=== PATIENT | male | born 1945 | race Caucasian/White ===

== ENCOUNTER 2018-09-02 08:19 | Outpatient (CLI) | payer MEDICARE ==
--- NOTE | 2018-09-02 15:54 | PET ---
PET CT FROM [facility] OF SKULL TO MID THIGH: HISTORY: Lymphoma. TECHNIQUE: A PET CT was performed from the top of the skull down to the level of the mid thigh after administrat ion of 10.6 mCi F18-FDG. FINDINGS: Normal, symmetric physiologic activity is seen in the brain. No hot or cold lesions are seen within t he brain. There are mildly enlarged bilateral cervical lymph nodes in zones 2-4. The largest lymph node is seen on the left measuring 2.0 cm in size and has a max SUV value of 20.2. Some hypermetabolic nonenlarge d lymph nodes are seen bilaterally. No hypermetabolic axillary lymph nodes are seen. There are areas of hypermetabolic activity which are subcentimeter in size in the bilateral hilar reg ions. These likely represent lymph nodes, but cannot be definitely discriminated from the pulmonary v asculature in the hilar regions without IV contrast. Max SUV value is 5.6 on the right and 5.7 on the left. No suspicious hypermetabolic activity is seen below the diaphragm. CT images used for attenuation correction shows atherosclerotic calcifications in the aorta. Degenera tive changes are seen in the spine. No suspicious areas of hypermetabolic activity are seen within th e skeleton. IMPRESSION: Patient appears to have enlarged lymph nodes in the neck and bilateral hilar regions of the chest. T his is consistent with the patient's diagnosis of lymphoma. POS: [facility]
== END 2018-09-02 08:20 | disposition home or self-care (01) ==
LOC: PET 08:19
PROVIDERS: ATTEND Internal Medicine Hematology & Oncology
DX: C85.90 Non-Hodgkin lymphoma, unspecified, unspecified site (principal); R59.0 Localized enlarged lymph nodes
CPT/HCPCS: 78815; A9552

== ENCOUNTER 2018-09-09 13:10 | Outpatient (CLI) | payer MEDICARE | END 2018-09-09 13:11 | disposition home or self-care (01) | LOC: ULT 13:10 | PROVIDERS: ATTEND Internal Medicine Hematology & Oncology | DX: Z51.11 Encounter for antineoplastic chemotherapy (principal); C83.31 Diffuse large B-cell lymphoma, lymph nodes of head, face, and neck; I08.3 Combined rheumatic disorders of mitral, aortic and tricuspid valves; Z79.899 Other long term (current) drug therapy | CPT/HCPCS: 93306 ==

== ENCOUNTER 2018-09-12 08:15 | Day surgery (SDC) | payer MEDICARE ==
[2018-09-09 14:05] VITALS: BMI 34.2
[2018-09-12 08:45] LABS: Prothrombin Time 13.6 SEC (12.0-14.7)
[2018-09-12] MEDS ORDERED: Fentanyl 100 MCG/2 ML VIAL ONE (09:45)
[2018-09-12] MEDS ORDERED: Midazolam HCl 2 mg/2 ml Vial ONE (09:46)
[2018-09-12] MEDS ORDERED: Sodium Bicarbonate 2.5 MEQ/5 ML VIAL ONE (09:46)
[2018-09-12 10:59] VITALS: TEMP 98.3
--- NOTE | 2018-09-12 15:26 | CT ---
CT GUIDED BONE MARROW ASPIRATE AND BIOPSY: Date: 09/12/18 CONSCIOUS SEDATION: 1 mg Versed, IV. 50 mcg Fentanyl, IV. Approximately 25 minutes spent with the patient for conscious sedation. HISTORY: Lymphoma. FINDINGS: After explaining the procedure and answering all questions, limited CT of the pelvis was performed wi th the patient prone. Sterile technique, buffered local anesthesia, conscious sedation, CT guidance, and a left posterior approach were used to carefully advance a 12 gauge bone core biopsy needle into the posterior aspect of the left iliac bone. Position was confirmed with CT. Aspirate was obtained an d submitted to pathology for processing. Bone marrow core was obtained and submitted to pathology. Ne edle was removed. Postprocedure imaging showed no evidence of complication. The patient tolerated the procedure well and was returned to the holding area in good condition for monitoring. IMPRESSION: Technically successful CT guided bone marrow aspirate and core biopsy. Pathology is pending. POS: [facility]
== END 2018-09-12 11:45 | disposition home or self-care (01) ==
LOC: CT 08:15
PROVIDERS: ATTEND Internal Medicine Hematology & Oncology
PROC: 07DR3ZX Extraction of Iliac Bone Marrow, Percutaneous Approach, Diagnostic (ICD-10-PCS; principal; 2018-09-12)
DX: C83.09 Small cell B-cell lymphoma, extranodal and solid organ sites (principal); Z79.899 Other long term (current) drug therapy
CPT/HCPCS: 20225; 36415; 77012; 85097; 85610; 85730; 88184; 88237; 88264; 88280; 88305; 88311; 88313; 88341; 88342; J2250; J3010

== ENCOUNTER 2018-09-15 15:00 | Outpatient (CLI) | payer MEDICARE ==
[2018-09-15 16:10] LABS: Anion Gap 8 mmol/L (10-20); BUN (Urea Nitrogen) 24 mg/dL (8.4-25.7); Calc. Creatinine Clearance 0 mL/min (70-130); Calcium 9.8 mg/dL (7.8-10.44); Carbon Dioxide 30 mmol/L (23-31); Chloride 101 mmol/L (98-107); Estimated GFR-MDRD 70; Glucose 123 mg/dL (83-110); Sodium 135 mmol/L (136-145)
[2018-09-15 16:16] LABS: Eosinophils 2 % (0-10); Hemoglobin 13.1 g/dL (14.0-18.0); Lymphocytes 47 % (21-51); MDiff Complete? YES; Mean Corpuscular HGB CONC 30.6 g/dL (32.0-36.0); Mean Corpuscular Hemoglobin 28.9 pg (27.0-31.0); Mean Corpuscular Volume 94.2 fL (78.0-98.0); Mean Platelet Volume 7.1 fL (7.4-10.4); Monocytes 6 % (0-10); Neutrophil 45 % (42-75); PLT Morphology Comment Appears Adequate; Platelet Count 228 thou/uL (130-400); RBC Distribution Width 11.9 % (11.5-14.5); Red Blood Cell (RBC) Count 4.54 mill/uL (4.70-6.10); White Blood Cell (WBC) Count 16.3 thou/uL (4.8-10.8)
--- NOTE | 2018-09-16 16:35 | EKG ---
Test Reason : Blood Pressure : / mmHG Vent. Rate : 072 BPM Atrial Rate : 072 BPM P-R Int : 176 ms QRS Dur : 090 ms QT Int : 372 ms P-R-T Axes : 043 067 061 degrees QTc Int : 407 ms Normal sinus rhythm Normal ECG When compared with ECG of 14-JUN-2013 01:32, No significant change was found Confirmed by DR. Faye FLOWERS ([id number]) on 09/16/2018 4:35:16 PM Referred By: ALETHA Confirmed By:DR. Faye FLOWERS
== END 2018-09-15 15:01 | disposition home or self-care (01) ==
LOC: LABBT 15:00
PROVIDERS: ATTEND Specialist
DX: Z01.812 Encounter for preprocedural laboratory examination (principal); C85.10 Unspecified B-cell lymphoma, unspecified site
CPT/HCPCS: 80048; 85025; 93005; 93010

== ENCOUNTER 2018-09-16 09:01 | Day surgery (SDC) | payer MEDICARE ==
[2018-09-15 15:28] VITALS: BMI 33.9
--- NOTE | 2018-09-15 21:32 | HP ---
HISTORY OF PRESENT ILLNESS: Ludin Crane is a 73-year-old male patient followed by Dr. Lal, Dr. Deangelo jaime, referred for MediPort placement for antineoplastic chemotherapy for stage IIA, large B cell ly mphoma, activated B-cell origin, status post left neck biopsy by Dr. Freeman with pathology review [facility]. Plan is to place a MediPort. He understands risks, benefits, and consents. SOCIAL HISTORY: Tobacco none. Alcohol none. 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 PAST MEDICAL HISTORY: Hypertension, epilepsy. MEDICATIONS: Benazepril/hydrochlorothiazide 20/25 daily, phenytoin 500 mg a day, levothyroxine 88 mc g a day. ALLERGIES: None. PAST SURGICAL HISTORY: Knee replacement 05/2015, I&D buttock abscess that I performed in 2017. REVIEW OF SYSTEMS: Ten-point noncontributory. PRIMARY CARE DOCTOR: Dr. Lal. ONCOLOGIST: Dr. Melendez. PHYSICAL EXAMINATION: VITAL SIGNS: Blood pressure 124/64, 69, 98.1 degrees, 250 pounds, 72 inches. HEAD, EYES, EARS, NOSE, AND THROAT: Unremarkable. LUNGS: Clear to auscultation. CARDIAC: Regular rate and rhythm without murmur or gallop. ABDOMEN: Soft, nontender. EXTREMITIES: Unremarkable. Nonpalpable lymphadenopathy. ASSESSMENT: Lymphoma. PLAN: MediPort placement. Risk of infection, bleeding, reoperation, malfunction of the MediPort dis cussed, he consents. Questions answered.
[2018-09-16] MEDS ORDERED: Lidocaine 2% Jelly 5 ML TUBE ONE (09:15)
[2018-09-16] MEDS ORDERED: Fentanyl 100 MCG/2 ML VIAL ONE (09:15)
[2018-09-16] MEDS ORDERED: Bupivacaine HCl 0.5%/Epinephrine 1:200,000/PF 30 ml Vial ONE (09:57)
[2018-09-16] MEDS ORDERED: Lidocaine 2% PF 5 ML VIAL ONE (09:57)
[2018-09-16] MEDS ORDERED: CEFAZOLIN 2 GM/50 ML BAG ONE (10:12)
--- NOTE | 2018-09-16 11:51 | OP ---
DATE OF PROCEDURE: 09/16/2018 PREOPERATIVE DIAGNOSIS: Large B cell lymphoma, in need of antineoplastic chemotherapy access. POSTOPERATIVE DIAGNOSIS: Large B cell lymphoma, in need of antineoplastic chemotherapy access. PROCEDURE: Right subclavian vein low profile MediPort PowerPort. SURGEON: Dr. Raj Chin ANESTHESIA: Intravenous sedation, local 0.5% Marcaine with epinephrine, 30 mL, mixed with 2% Xylocai ne, 10 mL. Fluoroscopy used. PROCEDURE: The patient was taken to the operating room where under intravenous sedation, neck and ch est prepared with ChloraPrep, draped in routine fashion. Local anesthetic infiltrated into skin and subcutaneous tissue about the operative site. Infraclavicular right access to the subclavian vein wi th a trocar catheter gained and J wire threaded, trocar catheter removed. Skin incised and enlarged sharply, carried down skin and subcutaneous tissue, creating a pocket using cautery for hemostasis. Dilator and pull-away sheath placed over the J-wire in superior vena cava. Dilator and J-wire remove d. Catheter placed with pull-away sheath. Pull-away sheath removed. Fluoroscopically, the tip had been placed in good position in superior vena cava and catheter tailored to length, connected to the MediPort placed in subcutaneous pocket securing it with 2 interrupted sutures of 3-0 Prolene. Subcut aneous tissues approximated with 3-0 Monocryl, skin with subdermal 4-0 Monocryl and DermaGlue applied . Each port aspirated with a Mission heater needle of blood and flushed with heparinized saline soluti on. Final fluoroscopic images revealed good line placement.
--- NOTE | 2018-09-16 12:44 | RAD ---
CHEST ONE VIEW: History: Mediport insertion. FINDINGS: The cardiac silhouette is magnified by projection. Shallow inspiration accentuates pulmonary markings . Mediastinum is midline. Tip of a right subclavian port-a-cath projects over the cavoatrial junction . No evidence of pneumothorax. IMPRESSION: Right subclavian Mediport is in good radiographic position. POS: [facility]
== END 2018-09-16 11:50 | disposition home or self-care (01) ==
LOC: SDC 09:01
PROVIDERS: ATTEND Specialist
PROC: 0JH63WZ Insertion of Totally Implantable Vascular Access Device into Chest Subcutaneous Tissue and Fascia, Percutaneous Approach (ICD-10-PCS; principal; 2018-09-16)
DX: C85.10 Unspecified B-cell lymphoma, unspecified site (principal); I10 Essential (primary) hypertension; G40.909 Epilepsy, unspecified, not intractable, without status epilepticus; Z79.899 Other long term (current) drug therapy
CPT/HCPCS: 36561; 71045; C1788; J0670; J1642; J2001; J3010

== ENCOUNTER 2018-11-24 09:31 | Outpatient (CLI) | payer MEDICARE ==
--- NOTE | 2018-11-24 13:30 | PET ---
PET SCAN WITH CT ATTENUATION CORRECTION: HISTORY: Lymphoma. Right neck mass. Patient has undergone chemotherapy. COMPARISON: 09/02/18. TECHNIQUE: PET scanning with CT attenuation correction is performed from the base of the brain to the proximal t highs following the intravenous administration of 11.2 mCi F18-FDG. FINDINGS: HEAD/NECK: The previously noted FDG avidity in the head and neck is no longer evident. CHEST: The previously noted FDG avidity in the left and right hilum is no longer evident. There is no new ar ea of abnormal FDG localization in the chest. CT used for attenuation correction demonstrates depende nt atelectatic changes. ABDOMEN/PELVIS: No abnormal FDG localization. OSSEOUS STRUCTURES: No abnormal FDG localization. IMPRESSION: Significant response to therapy. The previously noted abnormal FDG localization in the neck and pulmo nary tanvi is no longer evident. There are no new areas of abnormal FDG localization. POS: [facility]
== END 2018-11-24 09:32 | disposition home or self-care (01) ==
LOC: PET 09:31
PROVIDERS: ATTEND Internal Medicine Hematology & Oncology
DX: C85.90 Non-Hodgkin lymphoma, unspecified, unspecified site (principal)
CPT/HCPCS: 78815; A9552

== ENCOUNTER 2019-02-07 11:26 | Outpatient (CLI) | payer MEDICARE ==
--- NOTE | 2019-02-07 14:10 | PET ---
FPET WITH CT SKULL TO MID THIGH: COMPARISON: 11/24/2018. CLINICAL INDICATION: Lymphoma. Radiopharmaceutical: 10.6 mCi fluorine 18 FDG IV. FINDINGS: There has been interval development of abnormal hypermetabolic activity at the right oropharyngeal wa ll, with SUV of 5.3. No discernible soft tissue mass is seen within this region, where there is oppos ed soft tissues of the oropharynx as well as adjacent dystrophic-appearing calcifications. No hypermetabolic mass or adenopathy of the chest, abdomen, or pelvis is identified. There are no hyp ermetabolic osseous lesions visualized. IMPRESSION: Interval development of a small region of hypermetabolic activity of the right oropharynx as discusse d above. Given patient's clinical history, this could relate to metabolically active lymphoma. Contin ued imaging followup is recommended. Transcribed Date/Time: 02/07/2019 2:39 PM
== END 2019-02-07 11:27 | disposition home or self-care (01) ==
LOC: PET 11:26
PROVIDERS: ATTEND Internal Medicine Hematology & Oncology
DX: C83.30 Diffuse large B-cell lymphoma, unspecified site (principal)
CPT/HCPCS: 78815; A9552

== ENCOUNTER 2019-08-14 09:52 | Outpatient (CLI) | payer MEDICARE ==
--- NOTE | 2019-08-14 12:44 | CT ---
CT CHEST AND ABDOMEN WITH CONTRAST: Oral contrast was given. Multiplanar reconstructions. INDICATION: Large B-cell lymphoma. Correlation made to PET scan of 02/07/19. No adenopathy was described in the chest or abdomen on that study. FINDINGS: CT CHEST: The lung valdovinos are clear. There is no evidence of infiltrate or nodule. Mediastinum is unremarkable. No adenopathy. No axillary adenopathy. No osseous abnormality. Degenerat shari changes in the spine. CT ABDOMEN: Liver, spleen, and pancreas are unremarkable. Stomach and duodenum unremarkable. Adrenal glands and k idneys unremarkable. Visualized bowel loops unremarkable. Aorta shows atherosclerotic calcification w ithout aneurysmal dilatation. No adenopathy. Degenerative spine changes. IMPRESSION: No evidence of adenopathy identified in the chest or abdomen. No acute process. POS: [facility]
[2019-08-14] MEDS ORDERED: ISOVUE-370 76%-LOCM 1 ML ONE (13:43)
--- NOTE | 2019-08-14 13:50 | CT ---
CT NECK WITH CONTRAST: INDICATION: Diffuse large B-cell lymphoma lymph nodes of head, face, and neck. COMPARISON: Comparison is made to PET scan of 02/07/2019. That exam described abnormal activity in the right oroph arynx wall. FINDINGS: Parotid glands, submandibular glands, and thyroid appear unremarkable. Nasopharynx unremarkable. Oropharynx shows mild prominence of the palatine tonsils. There are 2 ton sillolith calcifications in the right palatine tonsil with prominence of the right palatine tonsil po ssibly relating to the activity seen on recent PET scan. Hypopharynx and larynx appear unremarkable. Parapharyngeal space and retropharyngeal space unremarkable. Car Storer space unremarkable. Carotid space shows prominent atherosclerotic changes in both carotid bulbs. There is evidence of st enosis in both proximal internal carotid arteries, possibly significant on the left. Consider caroti d Doppler assessment. If velocities are increased, CTA neck would be of benefit. Review of lymph node levels shows nonspecific level I submandibular nodes which re subcentimeter. Level II lymph nodes are nonspecific and subcentimeter. No evidence of level III, level IV, or level V adenopathy. Tiny nonspecific subcentimeter nodes are seen at these levels. Degenerative changes in the cervical spine are prominent at C4-5, C5-6, and C6-7. Prominent spondyli tic changes impinge on the cord and there is foraminal stenosis at these levels. There are mucous retention cysts in both maxillary sinuses. There is opacification of the left masto id air cells suggesting mucosal edema. IMPRESSION: 1. Mild prominence of the palatine tonsils, especially on the right. There are calcified tonsilloli ths in both palatine tonsils with at least 2 seen on the right. Prominence of the right palatine ton duong may explain the hypermetabolic activity seen on recent PET scan. 2. No evidence of cervical chain adenopathy. 3. Moderate severe degenerative change of the cervical spine producing cord compression and central canal stenosis with foraminal stenosis at several levels. 4. Prominent atherosclerotic calcification in the carotid bulb suggests carotid stenosis. Correlate with ultrasound velocity studies and consider CTA if velocity recordings are increased. 5. Mucosal retention cyst in the maxillary sinuses. POS: [facility]
== END 2019-08-14 09:53 | disposition home or self-care (01) ==
LOC: BICCT 09:52
PROVIDERS: ATTEND Internal Medicine Hematology & Oncology
DX: C83.31 Diffuse large B-cell lymphoma, lymph nodes of head, face, and neck (principal); M47.812 Spondylosis without myelopathy or radiculopathy, cervical region; M48.02 Spinal stenosis, cervical region; I65.23 Occlusion and stenosis of bilateral carotid arteries; J34.89 Other specified disorders of nose and nasal sinuses; J35.8 Other chronic diseases of tonsils and adenoids
CPT/HCPCS: 70491; 71260; 74160; 80053; 82248; 82565; 83615; 84100; 84550; Q9966

== ENCOUNTER 2020-03-12 10:16 | Outpatient (CLI) | payer MEDICARE ==
[2020-03-12] MEDS ORDERED: Iopamidol 370 76% 100 ML VIAL ONE (10:18)
--- NOTE | 2020-03-12 11:20 | CT ---
POSTCONTRAST SOFT TISSUE NECK CT: HISTORY: B-cell lymphoma. COMPARISON: 08/14/2019. CORRELATION: Pet imaging 02/07/2019. FINDINGS: Visualized brain parenchyma has appropriate attenuation. Bilateral ocular lenses are appropriately located. Both globes are intact. Retrobulbar fat is preserv ed. Symmetric attenuation of the optic nerves and ocular rectus muscles. Mild mucosal thickening involving the right maxillary sinus. Partial opacification of the right sphen oid sinus, incompletely evaluated. Fullness of the nasopharynx likely representing lymphoid tissue hypertrophy. There is fullness of the palatine tonsils also representing lymphoid tissue hypertrophy. No obvious masses in the oral cavity. Midline fatty raphae of the tongue preserved. Epiglottis has a normal caliber. Preepiglottic fat is preserved. Symmetric attenuation of the paraspinal muscles. Symmetric attenuation of the salivary glands. Approp riate attenuation of the thyroid gland. Cervical spine vertebral body height is maintained. There is no fracture. Multilevel degenerative ruchi nges throughout the cervical spine with varying degrees of central canal stenosis and neural foraminal narrowing, on the basis of degenerative change. Stable atherosclerosis involving both cervical carotid arteries. Lymph nodes: Extensive multifocal lymphadenopathy which has significantly progressed since the previo us examination. Pecan Sheller lymphadenopathy in the right neck with a level V lymph node measuring 1.5 x 1.2 cm, level I lymph node measuring 1.5 x 1.4 cm, left level II lymph node measuring 1.5 x 1.3 cm, bilateral periparotid lymph nodes measuring 2.4 x 1.4 on the right and 2.0 x 1.4 cm on the left. Additional enlarged lymph nodes are noted, scattered throughout the neck. There are larg e bilateral periclavicular and axillary lymph nodes. Refer to separate chest CT report for further detail. Upper mediastinum demonstrates enlarged right paratracheal lymph nodes. There is fullness in the righ t suprahilar region, incompletely evaluated. IMPRESSION: Interval extensive lymphadenopathy suggesting recurrence of lymphoma. Transcribed Date/Time: 03/12/2020 11:48 AM
--- NOTE | 2020-03-12 12:33 | CT ---
CT CHEST WITH IV CONTRAST CT ABDOMEN WITH IV AND ORAL CONTRAST: Date: 03/12/2020 HISTORY: Diffuse B cell lymphoma. COMPARISON: 08/14/2019. FINDINGS: There has been interval development of lymphadenopathy in the mediastinum, hilar regions, axilla, and abdomen (retroperitoneum, periportal regions, and gastrohepatic ligament). There are vascular calcifications without evidence of aneurysmal dilatation of the abdominal aorta. T here are degenerative changes in the thoracolumbar spine. No pneumothoraces, focal areas of consolidation, lung nodules, or masses are seen. The liver demonstr ates mild fatty infiltration. The spleen appears larger measuring 13.2 cm in oblique AP dimension com pared to 10.7 cm on the previous study. No pneumoperitoneum or ascites seen. The small bowel loops are not abnormally dilated. IMPRESSION: 1. Interval development of lymphadenopathy on both sides of the diaphragm. 2. Mild splenomegaly. 3. Mild hepatic steatosis. POS: [facility]
== END 2020-03-12 10:17 | disposition home or self-care (01) ==
LOC: BICCT 10:16
PROVIDERS: ATTEND Internal Medicine Hematology & Oncology
DX: C83.31 Diffuse large B-cell lymphoma, lymph nodes of head, face, and neck (principal); R59.0 Localized enlarged lymph nodes
CPT/HCPCS: 70491; 71260; 74160; Q9967

== ENCOUNTER 2020-04-11 06:24 | Outpatient (CLI) | payer MEDICARE, OTHER ==
[2020-04-11 18:20] LABS: SARS-CoV-2 MS2 Positive; SARS-CoV-2 N Gene Negative; SARS-CoV-2 S Gene Negative; SARS-CoV-2 orf1ab Negative
== END 2020-04-11 06:25 | disposition home or self-care (01) ==
LOC: LABBT 06:24
PROVIDERS: ATTEND Specialist
DX: Z01.812 Encounter for preprocedural laboratory examination (principal); Z11.59 Encounter for screening for other viral diseases; C85.10 Unspecified B-cell lymphoma, unspecified site
CPT/HCPCS: 87635; U0003

== ENCOUNTER 2020-04-12 08:38 | Day surgery (SDC) | payer MEDICARE ==
[2020-04-11 15:25] VITALS: BMI 31.8
[2020-04-12 08:55] LABS: #Lymphocytes 1.5 thou/uL (1.20-3.40); #Monocytes 0.8 thou/uL (0.11-0.59); #Neutrophils 3.1 thou/uL (1.40-6.50); %Basophils 0.8 % (0.0-1.0); %Eosinophils 0.3 % (0.0-10.0); %Lymphocytes 27.8 % (21.0-51.0); %Monocytes 14.1 % (0.0-10.0); %Neutrophils 57.2 % (42.0-75.0); Hemoglobin 9.7 g/dL (14.0-18.0); Mean Corpuscular HGB CONC 31.8 g/dL (32.0-36.0); Mean Corpuscular Volume 94.4 fL (78.0-98.0); Mean Platelet Volume 5.5 fL (7.4-10.4); Platelet Count 293 thou/uL (130-400); RBC Distribution Width 14.2 % (11.5-14.5); Red Blood Cell (RBC) Count 3.23 mill/uL (4.70-6.10); White Blood Cell (WBC) Count 5.4 thou/uL (4.8-10.8)
[2020-04-12 09:06] LABS: INR-International Normal Ratio 1.2; PTT 35.5 sec (22.9-36.1); Prothrombin Time 15.4 sec (12.0-14.7)
[2020-04-12] MEDS ORDERED: Sodium Bicarbonate 2.5 MEQ/5 ML VIAL ONE (09:43)
[2020-04-12 10:42] VITALS: BP 131/71; TEMP 98.8
--- NOTE | 2020-04-12 11:12 | CT ---
CT GUIDED RIGHT ILIAC BONE MARROW ASPIRATION AND BIOPSY: CLINICAL HISTORY: Recurrence of large B-cell lymphoma. PROCEDURE: The procedure including the risks and complications were explained to the patient, and informed conse nt was obtained. The patient was placed on the CT scan table in the prone position. Noncontrasted CT images were obtained through the pelvis. An area was marked overlying the RIGHT héctor c bone, and the area was meticulously prepped and draped in usual sterile fashion. The skin and subcutaneous tissues were infiltrated with buffered 1% lidocaine for local anesthesia. After a small skin incision was made, an 11-gauge needle was advanced and positioning was confirmed w ith axial CT images. Approximately 10 milliliters of bone marrow aspirate was obtained. The needle was then further advanced, and a bone marrow biopsy was performed. The needle was removed, and hemost asis was achieved with direct pressure. The patient tolerated the procedure well and without immediate complication. The patient was transported to radiology nurses holding area for further damion toring prior to discharge. IMPRESSION: Technically successful percutaneous bone marrow aspiration and biopsy. Pathology results are pending.
[2020-04-12] MEDS ORDERED: Prevnar 13-Val Conj/PF 0.5 ML SYRINGE IM ONE (15:45)
== END 2020-04-12 11:05 | disposition home or self-care (01) ==
LOC: CT 08:38
PROVIDERS: ATTEND Internal Medicine Hematology & Oncology
PROC: 07DR3ZX Extraction of Iliac Bone Marrow, Percutaneous Approach, Diagnostic (ICD-10-PCS; principal; 2020-04-12)
DX: C83.39 Diffuse large B-cell lymphoma, extranodal and solid organ sites (principal); Z79.899 Other long term (current) drug therapy
CPT/HCPCS: 20225; 36415; 77012; 85025; 85097; 85610; 85730; 88184; 88237; 88264; 88280; 88305; 88311; 88313; 88341; 88342

== ENCOUNTER 2020-04-12 09:17 | Day surgery (SDC) | payer MEDICARE ==
[2020-04-11 13:33] VITALS: BMI 31.8
[2020-04-12] MEDS ORDERED: Lidocaine 2% w/Epinephrine 1:200K 20 ML VIAL ONE (09:31)
[2020-04-12] MEDS ORDERED: Bupivacaine PF 0.5% 30 ML VIAL ONE (09:31)
[2020-04-12] MEDS ORDERED: Ketorolac Tromethamine 30 MG/ML VIAL ONE (11:55)
[2020-04-12] MEDS ORDERED: Acetaminophen 500 MG TAB ONE ×3 (11:55→11:56)
[2020-04-12] MEDS ORDERED: Lidocaine 1% PF 5 ML VIAL ONE (12:06)
[2020-04-12] MEDS ORDERED: PROPOFOL 200 MG/20 ML VIAL ONE (12:06)
[2020-04-12] MEDS ORDERED: Fentanyl 100 MCG/2 ML VIAL ONE (15:25)
[2020-04-12] MEDS ORDERED: Lidocaine 1% w/Epinephrine 1:100K 20 ML VIAL ONE (15:29)
[2020-04-12] MEDS ORDERED: PROPOFOL 0 ML ONE (16:05)
--- NOTE | 2020-04-12 17:26 | RAD ---
PORTABLE UPRIGHT FRONTAL CHEST RADIOGRAPH: 04/12/20 COMPARISON: None. HISTORY: Evaluate chest following Mediport placement. FINDINGS: There is a right sided Port-A-Cath in place, distal tip overlying the region of the SVC. No pneumotho rax, pleural fluid, focal consolidation, or alveolar edema. IMPRESSION: Right sided Port-A-Cath with no pneumothorax seen. POS: [facility]
--- NOTE | 2020-04-12 23:05 | OP ---
DATE OF PROCEDURE: 04/12/2020 PREOPERATIVE DIAGNOSIS: B-cell lymphoma, needs MediPort for antineoplastic chemotherapy access. POSTOPERATIVE DIAGNOSIS: B-cell lymphoma, needs MediPort for antineoplastic chemotherapy access. PROCEDURE PERFORMED: Right subclavian vein MediPort, fluoroscopy used. ANESTHESIA: Intravenous sedation, local 0.5% Marcaine 30 mL mixed with 1% Xylocaine with epinephrine 20 mL. DESCRIPTION OF PROCEDURE: Patient was taken to the operating room, where under intravenous sedation, the neck and chest were prepared with ChloraPrep and draped in routine fashion. Through his old scar, right upper chest, trocar catheter reduced into the subclavian vein, obtained good straight venous blood. J-wire threaded, trocar catheter removed. Fluoroscopic images revealed the J-wire and internal jugular vein. It was manipulated into what was thought the superior vena cava. In the process, the MediPort was placed, but did not have any blood return. Thus, it was removed. The right subclavian vein was recannulated with a trocar catheter. A J-wire threaded and it passed easily into the superior vena cava. The patient had a few PVCs. Dilator and pull away sheath were placed under fluoroscopic visualization in the superior vena cava and dilator and J-wire removed. Catheter placed with pull away sheath. Pull away sheath removed. Catheter tip placed in optimal position in the superior vena cava, catheter tailored to length, connected to the MediPort and which was placed in subcutaneous pocket which has been dissected free. Good hemostasis noted. Metaphor secured with 2 interrupted sutures of 3-0 Prolene, subcutaneous tissue was approximated with 3-0 Monocryl, skin was subdermal 4-0 Monocryl and [place] glue applied. Patient tolerated the procedure well. Final fluoroscopic images revealed good line placement. MediPort accessed with a Villanueva needle, obtained good return of blood and it was flushed with heparinized saline solution. Job ID: [id number]
== END 2020-04-12 17:53 | disposition home or self-care (01) ==
LOC: SDC 09:17
PROVIDERS: ATTEND Specialist
PROC: 02HV33Z Insertion of Infusion Device into Superior Vena Cava, Percutaneous Approach (ICD-10-PCS; principal; 2020-04-12)
DX: C85.10 Unspecified B-cell lymphoma, unspecified site (principal); I10 Essential (primary) hypertension; G40.909 Epilepsy, unspecified, not intractable, without status epilepticus; Z79.899 Other long term (current) drug therapy
CPT/HCPCS: 36561; 71045; C1788; J0690; J1642; J1885; J2001; J2704; J3010; S0020

== ENCOUNTER 2020-05-02 13:15 | Day surgery (SDC) | payer MEDICARE ==
[2020-05-02] MEDS ORDERED: Acetaminophen 500 MG TAB PO SCH (13:45)
[2020-05-02] MEDS ORDERED: diphenhydrAMINE 25 MG CAP PO SCH (13:45)
[2020-05-02 13:56] VITALS: BMI 30.2
[2020-05-02 23:01] LABS: Band 34 % (5-11); Hemoglobin 9.3 g/dL (14.0-18.0); Lymphocytes 19 % (21-51); MDiff Complete? YES; Mean Corpuscular HGB CONC 33.3 g/dL (32.0-36.0); Mean Corpuscular Hemoglobin 30.2 pg (27.0-31.0); Mean Corpuscular Volume 90.7 fL (78.0-98.0); Mean Platelet Volume 7.9 fL (7.4-10.4); Monocytes 5 % (0-10); Neutrophil 42 % (42-75); Nucleated RBC 1 % (0); Platelet Count 52 thou/uL (130-400); Platelet Morphology Comment Appears Decreased; RBC Distribution Width 14.4 % (11.5-14.5); Red Blood Cell (RBC) Count 3.07 mill/uL (4.70-6.10); White Blood Cell (WBC) Count 2.9 thou/uL (4.8-10.8)
[2020-05-02 23:06] VITALS: BP 121/72; TEMP 98.8
[2020-05-03] MEDS ORDERED: Prevnar 13-Val Conj/PF 0.5 ML SYRINGE IM ONE (14:30)
== END 2020-05-02 22:33 | disposition home or self-care (01) ==
LOC: ONC/OP 13:15 → T4-A 13:21 → ONC/OP 22:33
PROVIDERS: ATTEND Internal Medicine Hematology & Oncology
PROC: 30233N1 Transfusion of Nonautologous Red Blood Cells into Peripheral Vein, Percutaneous Approach (ICD-10-PCS; principal; 2020-05-02)
DX: D64.9 Anemia, unspecified (principal); D69.6 Thrombocytopenia, unspecified; Z79.899 Other long term (current) drug therapy; C83.31 Diffuse large B-cell lymphoma, lymph nodes of head, face, and neck
CPT/HCPCS: 36415; 36430; 80053; 82248; 83615; 84100; 84550; 85025; 86850; 86900; 86901; P9016; Q0163

== ENCOUNTER 2020-05-17 10:36 | Day surgery (SDC) | payer MEDICARE ==
[2020-05-17 12:04] VITALS: BMI 29.8
[2020-05-17] MEDS ORDERED: Acetaminophen 500 MG TAB PO SCH (12:15)
[2020-05-17] MEDS ORDERED: diphenhydrAMINE 25 MG CAP PO SCH (12:15)
[2020-05-17] MEDS ORDERED: Prevnar 13-Val Conj/PF 0.5 ML SYRINGE IM ONE (13:00)
[2020-05-17 14:38] VITALS: TEMP 97.9
[2020-05-17 17:12] VITALS: BP 111/61
[2020-05-17 17:59] LABS: Hemoglobin 8.6 g/dL (14.0-18.0); Mean Corpuscular HGB CONC 32.8 g/dL (32.0-36.0); Mean Corpuscular Hemoglobin 30.3 pg (27.0-31.0); Mean Corpuscular Volume 92.5 fL (78.0-98.0); Platelet Count 98 thou/uL (130-400); RBC Distribution Width 15.2 % (11.5-14.5); Red Blood Cell (RBC) Count 2.82 mill/uL (4.70-6.10); White Blood Cell (WBC) Count 17.3 thou/uL (4.8-10.8)
[2020-05-17 18:24] LABS: Anisocytosis SLIGHT = 6-15 cells (100X) (0-5/hpf); Band 17 % (5-11); Lymphocytes 5 % (21-51); MDiff Complete? YES; Metamyelocyte 1 % (0-0); Neutrophil 77 % (42-75); Platelet Morphology Comment Appears Decreased; Polychromasia SLIGHT = 2-3 cells (100X) (0-2/hpf)
== END 2020-05-17 17:38 | disposition home or self-care (01) ==
LOC: ONC/OP 10:36 → SURG A 10:37 → ONC/OP 17:38
PROVIDERS: ATTEND Internal Medicine Hematology & Oncology
PROC: 30233N1 Transfusion of Nonautologous Red Blood Cells into Peripheral Vein, Percutaneous Approach (ICD-10-PCS; principal; 2020-05-17)
DX: D64.9 Anemia, unspecified (principal); D69.6 Thrombocytopenia, unspecified
CPT/HCPCS: 36415; 36430; 85025; 86850; 86900; 86901; P9016; Q0163

== ENCOUNTER 2020-05-29 08:29 | Day surgery (SDC) | payer MEDICARE ==
[2020-05-29] MEDS ORDERED: diphenhydrAMINE 25 MG CAP PO SCH (09:00)
[2020-05-29] MEDS ORDERED: Acetaminophen 500 MG TAB PO SCH (09:00)
[2020-05-29] MEDS ORDERED: Sodium Chloride 0.9% 20 ML ONE (09:26)
[2020-05-29 15:26] VITALS: BP 132/65; TEMP 97.9
[2020-05-29 16:28] LABS: #Lymphocytes 0.5 thou/uL (1.20-3.40); #Monocytes 0.7 thou/uL (0.11-0.59); #Neutrophils 4.5 thou/uL (1.40-6.50); %Eosinophils 0.1 % (0.0-10.0); %Lymphocytes 9.2 % (21.0-51.0); %Monocytes 11.8 % (0.0-10.0); %Neutrophils 78.8 % (42.0-75.0); Anisocytosis SLIGHT = 6-15 cells (100X) (0-5/hpf); Band 31 % (5-11); Lymphocytes 3 % (21-51); MDiff Complete? YES; Mean Corpuscular HGB CONC 33.7 g/dL (32.0-36.0); Mean Corpuscular Hemoglobin 31.6 pg (27.0-31.0); Mean Corpuscular Volume 93.7 fL (78.0-98.0); Mean Platelet Volume 6.3 fL (7.4-10.4); Monocytes 5 % (0-10); Neutrophil 57 % (42-75); Platelet Count 284 thou/uL (130-400); Platelet Morphology Comment Appears Adequate; Reactive Lymphocytes 4 % (0-10); Red Blood Cell (RBC) Count 2.86 mill/uL (4.70-6.10); White Blood Cell (WBC) Count 5.8 thou/uL (4.8-10.8)
== END 2020-05-29 15:30 | disposition home or self-care (01) ==
LOC: ONC/OP 08:29
PROVIDERS: ATTEND Internal Medicine Hematology & Oncology
PROC: 30233N1 Transfusion of Nonautologous Red Blood Cells into Peripheral Vein, Percutaneous Approach (ICD-10-PCS; principal; 2020-05-29)
DX: D64.9 Anemia, unspecified (principal); D69.6 Thrombocytopenia, unspecified
CPT/HCPCS: 36430; 85025; 86850; 86900; 86901; J1642; P9016; Q0163

== ENCOUNTER 2020-08-20 12:26 | Outpatient (CLI) | payer MEDICARE ==
--- NOTE | 2020-08-20 19:09 | PET ---
PET CT: 08/20/20 HISTORY: 75-year-old male with diffuse large B-cell lymphoma. Completed chemotherapy on 06/18/20. Exam is reque sted to evaluate for subsequent treatment planning. TECHNIQUE: PET scan with CT attenuation correction was performed from the vertex through the proximal thighs fol lowing intravenous administration of 10.8 millicuries of 15-fluorodeoxyglucose in the right hand. COMPARISON: PET CT dated 06/18/20. FINDINGS: The lymph node in the left posterior occipital scalp demonstrates no abnormal FDG localization and kumar s an SUV of 2.2 (previous 3.5). Hypermetabolic lymph nodes demonstrate maximum SUVs with comparison as follows: Right neck 5.6 (6.1) Left neck 5.9 (6.1) Right axilla 6.3 (6.5) Left axilla 4.6 (5.6) Right hilum 5.5 (5.5) Subcarinal 6.2 (5.5) Retroperitoneal aortocaval 4.1 (4.9) Right iliac 6.7 (7) Left iliac 6.9 (6.9) Right inguinal 8.3 (7.6) Left inguinal 7.5 (6.3) No hypermetabolic pulmonary nodules, liver, adrenal, or skeletal lesions are seen. There is physiologic activity in the GI and tracts and the visualized portions of the brain. The CT scan used for attenuation correction demonstrates no evidence of pleural effusion or ascites. IMPRESSION: Resolution of hypermetabolic activity in left posterior occipital lymph node. No significant change i n hypermetabolic activity is otherwise seen since PET scan of 06/18/20 (Deauville score 4). POS: [facility]
== END 2020-08-20 12:27 | disposition home or self-care (01) ==
LOC: PET 12:26
PROVIDERS: ATTEND Internal Medicine Hematology & Oncology
DX: C83.30 Diffuse large B-cell lymphoma, unspecified site (principal)
CPT/HCPCS: 78815; A9552

== ENCOUNTER 2020-12-31 08:30 | Day surgery (SDC) | payer MEDICARE ==
[2020-12-30 14:31] VITALS: BMI 30.4
[2020-12-31 08:59] LABS: PTT 27.2 sec (22.9-36.1); Prothrombin Time 13.2 sec (12.0-14.7)
[2020-12-31 09:32] VITALS: BP 102/61; TEMP 97.7
--- NOTE | 2020-12-31 12:07 | CT ---
CT GUIDED RIGHT ILIAC BONE MARROW ASPIRATION AND BIOPSY: CLINICAL HISTORY: Lymphoma. PROCEDURE: The procedure including the risks and complications were explained to the patient, and informed conse nt was obtained. The patient was placed on the CT scan table in the prone position. Conscious sedation for a total [id number] was performed, administered by the radiology nurse, with the patient consistently monitored throughout the duration of the exam in stable condition. Noncontrasted CT images were obtained through the pelvis. An area was marked overlying the RIGHT héctor c bone, and the area was meticulously prepped and draped in usual sterile fashion. The skin and subcutaneous tissues were infiltrated with buffered 1% lidocaine for local anesthesia. After a small skin incision was made, an 11-gauge needle was advanced and positioning was confirmed w ith axial CT images. Approximately 9 milliliters of bone marrow aspirate was obtained. The needle was then further advanced, and a bone marrow biopsy was performed. The needle was removed, and hemost asis was achieved with direct pressure. The patient tolerated the procedure well and without immediate complication. The patient was transported to radiology nurses holding area for further damion toring prior to discharge. IMPRESSION: Technically successful percutaneous bone marrow aspiration and biopsy. Pathology results are pending.
== END 2020-12-31 12:00 | disposition home or self-care (01) ==
LOC: CT 08:30
PROVIDERS: ATTEND Internal Medicine Hematology & Oncology
PROC: 07DR3ZX Extraction of Iliac Bone Marrow, Percutaneous Approach, Diagnostic (ICD-10-PCS; principal; 2020-12-31)
DX: C83.31 Diffuse large B-cell lymphoma, lymph nodes of head, face, and neck (principal); I10 Essential (primary) hypertension; E07.9 Disorder of thyroid, unspecified; Z87.891 Personal history of nicotine dependence; Z79.899 Other long term (current) drug therapy
CPT/HCPCS: 20225; 77012; 85097; 85610; 85730; 88184; 88185; 88237; 88264; 88280; 88305; 88311; 88313; 88341; 88342; 88365

== ENCOUNTER 2021-01-03 09:21 | Outpatient (CLI) | payer MEDICARE ==
--- NOTE | 2021-01-03 13:43 | PET ---
Radionucleotide PET scan with CT attenuation correction HISTORY: Diffuse large B-cell lymphoma. Lymph nodes of head and neck. Restaging. COMPARISON: 08/20/2020. FINDINGS: No residual hypermetabolic activity is associated with the previously hypermetabolic lymph nodes of the neck, axillary, mediastinal, or pelvis. No new hypermetabolic adenopathy is evident. Degenerative type uptake is now more prominent at the right shoulder. There is subtle, heterogeneous uptake throughout each lung, more prominent in the lower lobes than th e upper. The CT images show widespread, predominantly diffuse peripheral groundglass opacity and interstitial thickening. No consolidation. No pleural fluid or pneumothorax. CT images show small hyperdense stones within the dependent portion of the gallbladder lumen. Promine nt calcification within the arterial structures. Diverticula arise from the colon without adjacent inflammation. IMPRESSION : Complete resolution of hypermetabolic adenopathy. No evidence of malignancy. Interval development of diffuse mild inflammation involving each lung. Correlate for bilateral pneumo nitis. Cholelithiasis. Diverticulosis. No evidence of diverticulitis.
== END 2021-01-03 09:22 | disposition home or self-care (01) ==
LOC: PET 09:21
PROVIDERS: ATTEND Internal Medicine Hematology & Oncology
DX: C83.31 Diffuse large B-cell lymphoma, lymph nodes of head, face, and neck (principal); K80.20 Calculus of gallbladder without cholecystitis without obstruction; J18.9 Pneumonia, unspecified organism; K57.30 Diverticulosis of large intestine without perforation or abscess without bleeding; C88.0 Waldenstrom macroglobulinemia
CPT/HCPCS: 78815; 80053; 82784 ×3; 85025; A9552; 36415

== ENCOUNTER 2021-06-23 09:37 | Outpatient (CLI) | payer MEDICARE | END 2021-06-23 09:38 | disposition home or self-care (01) | LOC: PET 09:37 | PROVIDERS: ATTEND Internal Medicine Hematology & Oncology | DX: C83.31 Diffuse large B-cell lymphoma, lymph nodes of head, face, and neck (principal) | CPT/HCPCS: 78815; A9552 ==

== ENCOUNTER 2021-09-04 09:50 | Outpatient (CLI) | payer MEDICARE | END 2021-09-04 09:51 | disposition home or self-care (01) | LOC: PET 09:50 | PROVIDERS: ATTEND Internal Medicine Hematology & Oncology | DX: C83.30 Diffuse large B-cell lymphoma, unspecified site (principal); C88.0 Waldenstrom macroglobulinemia; D70.8 Other neutropenia; C83.31 Diffuse large B-cell lymphoma, lymph nodes of head, face, and neck | CPT/HCPCS: 78815; 80053; 82248; 83615; 84100; 84550; A9552 ==

== ENCOUNTER 2021-12-15 13:42 | Inpatient (IN) | payer MEDICARE ==
[2021-12-15 15:23] LABS: Hemoglobin 11.2 g/dL (14.0-18.0); Mean Corpuscular HGB CONC 34.4 g/dL (32.0-36.0); Mean Corpuscular Hemoglobin 35.9 pg (27.0-31.0); Mean Platelet Volume 9.2 fL (7.4-10.4); Platelet Count 72 thou/uL (130-400); RBC Distribution Width 15.3 % (11.5-14.5); Red Blood Cell (RBC) Count 3.13 mill/uL (4.70-6.10); White Blood Cell (WBC) Count 2.2 thou/uL (4.8-10.8)
[2021-12-15 15:30] LABS: INR-International Normal Ratio 1.1; PTT 37.5 sec (22.9-36.1); Prothrombin Time 14.1 sec (12.0-14.7)
[2021-12-15 15:40] LABS: ALT (SGPT) 69 U/L (8-55); AST (SGOT) 38 U/L (5-34); Albumin 3.4 g/dL (3.4-4.8); Alkaline Phosphatase 96 U/L (40-110); Anion Gap 14 mmol/L (10-20); BUN (Urea Nitrogen) 15 mg/dL (8.4-25.7); Bilirubin, Total 0.8 mg/dL (0.2-1.2); Calc. Creatinine Clearance 0 mL/min (70-130); Calcium 9.5 mg/dL (7.8-10.44); Carbon Dioxide 22 mmol/L (23-31); Chloride 101 mmol/L (98-107); Globulin 2.9 g/dL (2.4-3.5); Glucose 107 mg/dL (83-110); Potassium 3.8 mmol/L (3.5-5.1); Protein, Total 6.3 g/dL (5.8-8.1); Sodium 133 mmol/L (136-145)
[2021-12-15 15:49] LABS: Anisocytosis SLIGHT = 6-15 cells (100X) (0-5/hpf); Band 9 % (5-11); Eosinophils 5 % (0-10); Lymphocytes 54 % (21-51); MDiff Complete? YES; Macrocytosis SLIGHT = 6-15 cells (100X) (0-5/hpf); Monocytes 7 % (0-10); Neutrophil 21 % (42-75); Ovalocytes SLIGHT = 2-5 cells (100X) (0-1/hpf); Platelet Morphology Comment Appears Decreased; Polychromasia SLIGHT = 2-3 cells (100X) (0-2/hpf); Reactive Lymphocytes 3 % (0-10)
[2021-12-15 16:09] LABS: SARS-CoV-2 NAA Rapid Test Not Detected (NotDetected)
[2021-12-15 16:31] LABS: Bilirubin Negative (Negative); Blood, Urine Negative (Negative); Clarity Clear (Clear); Glucose, Urine (Dipstick) Normal (Negative); Ketone, Urine Negative (Negative); Leukocyte Negative Leu/uL (Negative); Nitrite Negative (Negative); Protein, Urine (Dipstick) 20 mg/dL (Neg-Trace); Specific Gravity, Urine 1.023 (1.002-1.036); Urobilinogen Normal mg/dL (Less than 2)
[2021-12-15] MEDS ORDERED: Aspirin Chewable 81 MG TAB ONE (17:09)
[2021-12-15 20:06] LABS: Troponin I 0.011 ng/mL (< 0.028)
[2021-12-15] MEDS ORDERED: Ondansetron ODT 4 MG TAB SL PRN (21:00)
[2021-12-15] MEDS ORDERED: Acetaminophen 325 MG TAB PO PRN (21:00)
[2021-12-15] MEDS ORDERED: Ondansetron PF 4 MG/2 ML Vial IVP PRN (21:00)
[2021-12-15 21:18] VITALS: BMI 30.7
[2021-12-15 21:26] LABS: Troponin I Less than 0.010 ng/mL (< 0.028)
[2021-12-15] MEDS ORDERED: Senokot S 8.6-50 MG TAB PO PRN (21:42)
[2021-12-15] MEDS ORDERED: Bisacodyl 5 MG TAB PO PRN (21:42)
[2021-12-15] MEDS ORDERED: Melatonin 3 MG TAB PO PRN (21:50)
[2021-12-15] MEDS ORDERED: hydrALAZINE 20 MG/ML VIAL SLOW IVP PRN (21:50)
[2021-12-15] MEDS ORDERED: Enoxaparin Sodium 40 MG/0.4 ML SYRINGE SC SCH (22:00)
[2021-12-15] MEDS ORDERED: Acyclovir 800 mg Tablet PO SCH (22:15)
[2021-12-15] MEDS ORDERED: levETIRAcetam 500 MG TAB PO SCH (22:15)
[2021-12-15] MEDS: cefTRIAXone\\ROCEPHIN 2 GM in Sodium Chloride 0.9% 100 ML IVPB SCH (22:33)
[2021-12-15] MEDS: Azithromycin 500 MG in Sodium Chloride 0.9% 250 ML 250 ML IVPB SCH (22:34)
[2021-12-15] MEDS ORDERED: methylPREDNISolone Sod Succ 40 MG VIAL IVP SCH (23:15)
[2021-12-16] MEDS: Guaifenesin DM 100-10/5 ML UDCUP PO PRN ×2 (03:21→23:14)
[2021-12-16] MEDS: Levothyroxine Sodium 88 MCG TAB PO SCH (05:08)
[2021-12-16 05:40] LABS: ALT (SGPT) 60 U/L (8-55); AST (SGOT) 29 U/L (5-34); Albumin 3.3 g/dL (3.4-4.8); Alkaline Phosphatase 86 U/L (40-110); Anion Gap 15 mmol/L (10-20); BUN (Urea Nitrogen) 15 mg/dL (8.4-25.7); Bilirubin, Total 0.8 mg/dL (0.2-1.2); Calc. Creatinine Clearance 100 mL/min (70-130); Calcium 9.7 mg/dL (7.8-10.44); Carbon Dioxide 22 mmol/L (23-31); Chloride 102 mmol/L (98-107); Globulin 2.7 g/dL (2.4-3.5); Glucose 169 mg/dL (83-110); Potassium 3.9 mmol/L (3.5-5.1); Sodium 135 mmol/L (136-145)
[2021-12-16 05:51] LABS: Band 6 % (5-11); Eosinophils 2 % (0-10); Hemoglobin 10.9 g/dL (14.0-18.0); Lymphocytes 55 % (21-51); MDiff Complete? YES; Mean Corpuscular HGB CONC 34.3 g/dL (32.0-36.0); Mean Corpuscular Hemoglobin 35.3 pg (27.0-31.0); Mean Platelet Volume 9.1 fL (7.4-10.4); Metamyelocyte 1 % (0-0); Monocytes 8 % (0-10); Neutrophil 26 % (42-75); Platelet Count 59 thou/uL (130-400); Platelet Morphology Comment Appears Decreased; RBC Distribution Width 15.4 % (11.5-14.5); Reactive Lymphocytes 2 % (0-10); Red Blood Cell (RBC) Count 3.09 mill/uL (4.70-6.10); White Blood Cell (WBC) Count 1.2 thou/uL (4.8-10.8)
[2021-12-16] MEDS ORDERED: IBRUTINIB 140 MG PO SCH (09:00)
[2021-12-16] MEDS ORDERED: Enoxaparin Sodium 40 MG/0.4 ML SYRINGE SC SCH ×2 (09:00→21:00)
[2021-12-16] MEDS: Aspirin Chewable 81 MG TAB PO SCH (09:02)
[2021-12-16] MEDS: levETIRAcetam 500 MG TAB PO SCH ×2 (09:03→20:12)
[2021-12-16] MEDS: methylPREDNISolone Sod Succ 40 MG VIAL IVP SCH ×2 (09:03→20:12)
[2021-12-16] MEDS: Acyclovir 800 mg Tablet PO SCH ×2 (09:03→20:12)
[2021-12-16 15:49] LABS: Legionella Urinary Ag Negative (Negative); Strep pneumo Urine Ag NEGATIVE (NEGATIVE)
[2021-12-16] MEDS: Azithromycin 500 MG in Sodium Chloride 0.9% 250 ML 250 ML IVPB SCH (23:09)
[2021-12-17] MEDS: cefTRIAXone\\ROCEPHIN 2 GM in Sodium Chloride 0.9% 100 ML IVPB SCH (00:36)
[2021-12-17] MEDS: Levothyroxine Sodium 88 MCG TAB PO SCH (06:15)
[2021-12-17 06:20] LABS: Anion Gap 13 mmol/L (10-20); BUN (Urea Nitrogen) 19 mg/dL (8.4-25.7); Calc. Creatinine Clearance 109 mL/min (70-130); Calcium 9.5 mg/dL (7.8-10.44); Carbon Dioxide 24 mmol/L (23-31); Chloride 103 mmol/L (98-107); Glucose 153 mg/dL (83-110); Phosphorus 4.1 mg/dL (2.3-4.7); Potassium 3.8 mmol/L (3.5-5.1); Sodium 136 mmol/L (136-145)
[2021-12-17 08:24] LABS: Band 12 % (5-11); Eosinophils 2 % (0-10); Lymphocytes 58 % (21-51); Metamyelocyte 2 % (0-0); Monocytes 4 % (0-10); Neutrophil 20 % (42-75); Polychromasia SLIGHT = 2-3 cells (100X) (0-2/hpf); Reactive Lymphocytes 2 % (0-10)
[2021-12-17 08:25] LABS: Ovalocytes SLIGHT = 2-5 cells (100X) (0-1/hpf); Platelet Morphology Comment Appears Decreased
[2021-12-17 08:30] LABS: Hemoglobin 10.2 g/dL (14.0-18.0); Red Blood Cell (RBC) Count 2.86 mill/uL (4.70-6.10); White Blood Cell (WBC) Count 0.9 thou/uL (4.8-10.8)
[2021-12-17 08:31] LABS: Mean Corpuscular HGB CONC 34.6 g/dL (32.0-36.0); Mean Corpuscular Hemoglobin 35.7 pg (27.0-31.0); Mean Platelet Volume 8.8 fL (7.4-10.4); Platelet Count 59 thou/uL (130-400); RBC Distribution Width 15.1 % (11.5-14.5)
[2021-12-17 08:32] LABS: MDiff Complete? YES
[2021-12-17] MEDS: Aspirin Chewable 81 MG TAB PO SCH (09:10)
[2021-12-17] MEDS: levETIRAcetam 500 MG TAB PO SCH (09:11)
[2021-12-17] MEDS: methylPREDNISolone Sod Succ 40 MG VIAL IVP SCH (09:12)
[2021-12-17] MEDS: Acyclovir 800 mg Tablet PO SCH (11:03)
[2021-12-17 12:44] VITALS: BP 98/55; TEMP 97.8
[2021-12-18] MEDS ORDERED: predniSONE 20 MG TAB PO SCH (08:00)
== END 2021-12-17 15:12 | disposition home or self-care (01) | DRG 193 ==
LOC: ERS 13:42 → ERHOLD 17:57 → 2NO 21:16 → OBSVTOIN 12-17 10:50
PROVIDERS: ADMIT Internal Medicine; ATTEND Family Medicine
DX: J18.9 Pneumonia, unspecified organism (principal); D61.810 Antineoplastic chemotherapy induced pancytopenia; C85.90 Non-Hodgkin lymphoma, unspecified, unspecified site; J20.9 Acute bronchitis, unspecified; Z20.822 Contact with and (suspected) exposure to COVID-19; I10 Essential (primary) hypertension; E03.9 Hypothyroidism, unspecified; B18.2 Chronic viral hepatitis C; R56.9 Unspecified convulsions; Z96.653 Presence of artificial knee joint, bilateral; T45.1X5A Adverse effect of antineoplastic and immunosuppressive drugs, initial encounter; Z79.890 Hormone replacement therapy; Z79.82 Long term (current) use of aspirin; Z79.899 Other long term (current) drug therapy
CPT/HCPCS: 36415; 71045; 71275; 80048; 80053; 81003; 83735; 83880; 84100; 84443; 84484; 85025; 85610; 85730; 87040; 87449; 87633; 87899; 93005; 94640; 94760; 96372; 96374; 96375; 96376; G0378; J0456; J0696; J1447; J1642; J1650; J2920; J3490; J7050; J7620; U0002

== ENCOUNTER 2021-12-31 09:11 | Outpatient (CLI) | payer MEDICARE | END 2021-12-31 09:12 | disposition home or self-care (01) | LOC: RAD 09:11 | PROVIDERS: ATTEND Internal Medicine Critical Care Medicine | DX: R06.00 Dyspnea, unspecified (principal); J47.9 Bronchiectasis, uncomplicated | CPT/HCPCS: 71046 ==

== ENCOUNTER 2022-03-06 10:40 | Day surgery (SDC) | payer MEDICARE ==
[2022-03-06] MEDS ORDERED: Acetaminophen 500 MG TAB ONE (11:14)
[2022-03-06] MEDS ORDERED: diphenhydrAMINE 25 MG CAP ONE (11:14)
[2022-03-06 12:37] VITALS: BP 113/58; TEMP 97.8
== END 2022-03-06 12:37 | disposition home or self-care (01) ==
LOC: ONC/OP 10:40
PROVIDERS: ATTEND Internal Medicine Hematology & Oncology
PROC: 30233R1 Transfusion of Nonautologous Platelets into Peripheral Vein, Percutaneous Approach (ICD-10-PCS; principal; 2022-03-06)
DX: D69.6 Thrombocytopenia, unspecified (principal); D64.9 Anemia, unspecified
CPT/HCPCS: 36430; 86850; 86900; 86901; J1642; P9035

== ENCOUNTER 2022-03-10 09:23 | Outpatient (CLI) | payer MEDICARE | END 2022-03-10 09:24 | disposition home or self-care (01) | LOC: RAD 09:23 | PROVIDERS: ATTEND Internal Medicine Critical Care Medicine | DX: R06.00 Dyspnea, unspecified (principal); J40 Bronchitis, not specified as acute or chronic | CPT/HCPCS: 71046 ==

== ENCOUNTER 2022-03-20 10:00 | Outpatient (CLI) | payer MEDICARE | END 2022-03-20 10:01 | disposition home or self-care (01) | LOC: PET 10:00 | PROVIDERS: ATTEND Internal Medicine Hematology & Oncology | DX: C83.31 Diffuse large B-cell lymphoma, lymph nodes of head, face, and neck (principal) | CPT/HCPCS: 78815; A9552 ==

== ENCOUNTER 2022-04-23 09:56 | Day surgery (SDC) | payer MEDICARE ==
[2022-04-23] MEDS ORDERED: Acetaminophen 500 MG TAB ONE (10:08)
[2022-04-23] MEDS ORDERED: diphenhydrAMINE 25 MG CAP ONE (10:08)
[2022-04-23 11:07] VITALS: BP 127/62; TEMP 97.8
== END 2022-04-23 11:16 | disposition home or self-care (01) ==
LOC: ONC/OP 09:56
PROVIDERS: ATTEND Internal Medicine Hematology & Oncology
PROC: 30233R1 Transfusion of Nonautologous Platelets into Peripheral Vein, Percutaneous Approach (ICD-10-PCS; principal; 2022-04-23)
DX: D69.6 Thrombocytopenia, unspecified (principal); D64.9 Anemia, unspecified
CPT/HCPCS: 36430; 86900; 86901; J1642; P9035

== ENCOUNTER 2022-04-27 11:26 | Inpatient (IN) | payer MEDICARE ==
[2022-04-27] MEDS ORDERED: Cefepime 2 GM VIAL ONE (11:38)
[2022-04-27] MEDS ORDERED: Magnesium 2 GM/50 ML BAG (IN WATER) ONE (11:38)
[2022-04-27] MEDS ORDERED: Dexamethasone 10 MG/ML VIAL ONE (11:40)
[2022-04-27] MEDS ORDERED: Albuterol Sulfate 2.5 mg/0.5 ml Neb ONE (12:11)
[2022-04-27] MEDS ORDERED: Vancomycin 1 GM/200 ML BAG ONE (12:29)
[2022-04-27 12:45] LABS: ALT (SGPT) 20 U/L (8-55); AST (SGOT) 18 U/L (5-34); Albumin 3.5 g/dL (3.4-4.8); Alkaline Phosphatase 66 U/L (40-110); Anion Gap 17 mmol/L (10-20); BUN (Urea Nitrogen) 26 mg/dL (8.4-25.7); Bilirubin, Total 1.7 mg/dL (0.2-1.2); CK (CPK) 12 U/L (30-200); Calc. Creatinine Clearance 0 mL/min (70-130); Calcium 8.5 mg/dL (7.8-10.44); Carbon Dioxide 23 mmol/L (23-31); Chloride 100 mmol/L (98-107); Globulin 1.6 g/dL (2.4-3.5); Glucose 121 mg/dL (83-110); Lipase Less than 4 U/L (8-78); Potassium 4.6 mmol/L (3.5-5.1); Protein, Total 5.1 g/dL (5.8-8.1); Sodium 135 mmol/L (136-145)
[2022-04-27 12:46] LABS: Hemoglobin 9.2 g/dL (14.0-18.0); Mean Corpuscular HGB CONC 34.3 g/dL (32.0-36.0); Mean Corpuscular Hemoglobin 40.2 pg (27.0-31.0); Platelet Count 21 thou/uL (130-400); RBC Distribution Width 16.4 % (11.5-14.5); Red Blood Cell (RBC) Count 2.28 mill/uL (4.70-6.10); White Blood Cell (WBC) Count 13.2 thou/uL (4.8-10.8)
[2022-04-27 13:26] LABS: SARS-CoV-2 NAA Rapid Test Not Detected (NotDetected)
[2022-04-27 13:28] LABS: Band 12 % (5-11); Dohle Bodies SLIGHT; Lymphocytes 1 % (21-51); MDiff Complete? YES; Macrocytosis MODERATE=16-30 cells (100X) (0-5/hpf); Monocytes 8 % (0-10); Myelocyte 3 % (0-0); Neutrophil 74 % (42-75); Ovalocytes SLIGHT = 2-5 cells (100X) (0-1/hpf); Platelet Morphology Comment Appears Decreased; Polychromasia SLIGHT = 2-3 cells (100X) (0-2/hpf); Reactive Lymphocytes 2 % (0-10); Reflex for Review?? YES; Toxic Granulation SLIGHT
[2022-04-27] MEDS ORDERED: Sodium Chloride 0.9% 1,000 ML IV SCH (14:45)
[2022-04-27] MEDS ORDERED: Ondansetron PF 4 MG/2 ML Vial IVP PRN (14:45)
[2022-04-27 14:46] LABS: Bacteria/HPF None Seen HPF (None Seen); Bilirubin Negative (Negative); Blood, Urine 2+ (Negative); Clarity Clear (Clear); Glucose, Urine (Dipstick) Normal (Negative); Ketone, Urine Negative (Negative); Leukocyte Negative Leu/uL (Negative); Nitrite Negative (Negative); Protein, Urine (Dipstick) Negative (Neg-Trace); RBC/HPF 21-50 HPF (0-3); Specific Gravity, Urine 1.022 (1.002-1.036); Squamous Epithelial 0-3 HPF (0-3); Urobilinogen Normal mg/dL (Less than 2); WBC/HPF 0-3 HPF (0-3); pH, Urine 5.5 (5.0-9.0)
[2022-04-27 15:28] LABS: Lactic Acid 3.4 mmol/L (0.5-2.2)
[2022-04-27] MEDS ORDERED: Pantoprazole 40 MG VIAL IVP SCH (15:30)
[2022-04-27] MEDS ORDERED: Vancomycin 1.5 GRAM/300 ML BAG 1.5 GM in Premix Bag 1 BAG IVPB SCH (15:30)
[2022-04-27 16:04] VITALS: BMI 32.8
[2022-04-27] MEDS: Sodium Chloride 0.9% 1,000 ML IV SCH (16:19)
[2022-04-27 16:58] LABS: Hemoglobin A1c 5.5 % (4.0-6.0)
[2022-04-27 17:23] LABS: INR-International Normal Ratio 1.3; PTT 27.8 sec (22.9-36.1); Prothrombin Time 15.9 sec (12.0-14.7)
[2022-04-27 18:21] LABS: Legionella Urinary Ag Negative (Negative); Strep pneumo Urine Ag NEGATIVE (NEGATIVE)
[2022-04-27] MEDS: Mometasone 200 MCG/Formoterol 5 MCG 120 PUFF INHALER INH SCH (18:59)
[2022-04-27 19:47] LABS: Lactic Acid 3.5 mmol/L (0.5-2.2)
[2022-04-27] MEDS: levETIRAcetam 500 MG TAB PO SCH (20:01)
[2022-04-27] MEDS ORDERED: Famotidine/PF 20 mg/2ml Vial SLOW IVP SCH (21:00)
[2022-04-27] MEDS ORDERED: Vancomycin HCl 1 GM in Sodium Chloride 0.9% 250 ML 300 ML IVPB SCH (21:00)
[2022-04-28] MEDS: Cefepime 2 GM in Sodium Chloride 0.9% 100 ML IVPB SCH ×2 (01:49→14:05)
[2022-04-28 04:37] LABS: Mean Corpuscular HGB CONC 33.9 g/dL (32.0-36.0); Mean Platelet Volume 10.8 fL (7.4-10.4); Platelet Count 17 thou/uL (130-400); RBC Distribution Width 16.3 % (11.5-14.5); Red Blood Cell (RBC) Count 2.01 mill/uL (4.70-6.10); White Blood Cell (WBC) Count 6.9 thou/uL (4.8-10.8)
[2022-04-28 04:39] LABS: Band 17 % (5-11); Lymphocytes 4 % (21-51); MDiff Complete? YES; Macrocytosis MODERATE=16-30 cells (100X) (0-5/hpf); Monocytes 1 % (0-10); Myelocyte 1 % (0-0); Neutrophil 77 % (42-75); Platelet Morphology Comment Appears Decreased
[2022-04-28 04:40] LABS: ALT (SGPT) 17 U/L (8-55); AST (SGOT) 13 U/L (5-34); Alkaline Phosphatase 49 U/L (40-110); Anion Gap 9 mmol/L (10-20); BUN (Urea Nitrogen) 18 mg/dL (8.4-25.7); Bilirubin, Direct 0.3 mg/dL (0.1-0.3); Bilirubin, Total 0.5 mg/dL (0.2-1.2); Calc. Creatinine Clearance 102 mL/min (70-130); Calcium 9.1 mg/dL (7.8-10.44); Carbon Dioxide 26 mmol/L (23-31); Cardiac Risk 3.7 (Less than 4.5); Chloride 107 mmol/L (98-107); Cholesterol 103 mg/dl (< 200 Desired); Glucose 168 mg/dL (83-110); HDL Cholesterol 28 mg/dL (>60 Neg Risk); LDL Cholesterol, Calculated 60 mg/dL; Magnesium 2.1 mg/dL (1.6-2.6); Potassium 4.1 mmol/L (3.5-5.1); Protein, Total 4.8 g/dL (5.8-8.1); Sodium 138 mmol/L (136-145); Triglycerides 74 mg/dL (Less than 150)
[2022-04-28] MEDS: Sodium Chloride 0.9% 1,000 ML IV SCH ×3 (05:34→21:15)
[2022-04-28] MEDS: Levothyroxine Sodium 88 MCG TAB PO SCH (05:35)
[2022-04-28] MEDS: Mometasone 200 MCG/Formoterol 5 MCG 120 PUFF INHALER INH SCH ×2 (07:50→18:47)
[2022-04-28] MEDS: Thiamine 100 MG TAB PO SCH (08:43)
[2022-04-28] MEDS: Multivit, Chewable SF 1 TAB PO SCH (08:43)
[2022-04-28] MEDS: levETIRAcetam 500 MG TAB PO SCH ×2 (08:43→20:19)
[2022-04-28] MEDS: Folic Acid 1 MG TAB PO SCH (08:43)
[2022-04-28] MEDS: Pantoprazole 40 MG VIAL IVP SCH (08:43)
[2022-04-28] MEDS ORDERED: VANCOMYCIN 2 GRAM/500 ML BAG 2 GM in Premix Bag 1 BAG IVPB SCH (15:00)
[2022-04-29] MEDS: Cefepime 2 GM in Sodium Chloride 0.9% 100 ML IVPB SCH (00:52)
[2022-04-29] MEDS: Levothyroxine Sodium 88 MCG TAB PO SCH (05:52)
[2022-04-29 06:48] LABS: Mean Corpuscular HGB CONC 34.1 g/dL (32.0-36.0); Mean Corpuscular Hemoglobin 40.2 pg (27.0-31.0); Mean Platelet Volume 10.6 fL (7.4-10.4); Platelet Count 18 thou/uL (130-400); RBC Distribution Width 16.1 % (11.5-14.5); Red Blood Cell (RBC) Count 1.99 mill/uL (4.70-6.10); White Blood Cell (WBC) Count 4.1 thou/uL (4.8-10.8)
[2022-04-29] MEDS: Mometasone 200 MCG/Formoterol 5 MCG 120 PUFF INHALER INH SCH ×2 (07:03→20:13)
[2022-04-29 07:05] LABS: Anion Gap 12 mmol/L (10-20); BUN (Urea Nitrogen) 16 mg/dL (8.4-25.7); Calc. Creatinine Clearance 127 mL/min (70-130); Calcium 8.7 mg/dL (7.8-10.44); Carbon Dioxide 25 mmol/L (23-31); Chloride 108 mmol/L (98-107); Glucose 128 mg/dL (83-110); Magnesium 1.8 mg/dL (1.6-2.6); Potassium 3.8 mmol/L (3.5-5.1); Sodium 141 mmol/L (136-145)
[2022-04-29 07:10] LABS: Band 34 % (5-11); Eosinophils 3 % (0-10); Lymphocytes 9 % (21-51); MDiff Complete? YES; Macrocytosis MODERATE=16-30 cells (100X) (0-5/hpf); Monocytes 4 % (0-10); Neutrophil 50 % (42-75); Platelet Morphology Comment Appears Decreased; Polychromasia MODERATE = 3-4 cells (100X) (0-2/hpf)
[2022-04-29] MEDS: Sodium Chloride 0.9% 1,000 ML IV SCH ×2 (08:19→18:06)
[2022-04-29] MEDS: Thiamine 100 MG TAB PO SCH (08:20)
[2022-04-29] MEDS: levETIRAcetam 500 MG TAB PO SCH ×2 (08:20→20:04)
[2022-04-29] MEDS: Folic Acid 1 MG TAB PO SCH (08:20)
[2022-04-29] MEDS: Pantoprazole 40 MG VIAL IVP SCH (08:27)
[2022-04-29] MEDS: Multivit, Chewable SF 1 TAB PO SCH (08:27)
[2022-04-29 14:38] LABS: Vancomycin, Trough 8.7 ug/mL
[2022-04-29] MEDS ORDERED: VANCOMYCIN 1.25 GM/250 ML BAG 1.25 GM in Premix Bag 1 BAG IVPB SCH (15:00)
[2022-04-30] MEDS: Levothyroxine Sodium 88 MCG TAB PO SCH (05:20)
[2022-04-30 05:56] LABS: Anion Gap 12 mmol/L (10-20); BUN (Urea Nitrogen) 11 mg/dL (8.4-25.7); Calc. Creatinine Clearance 129 mL/min (70-130); Calcium 9.3 mg/dL (7.8-10.44); Carbon Dioxide 27 mmol/L (23-31); Chloride 104 mmol/L (98-107); Glucose 126 mg/dL (83-110); Magnesium 1.7 mg/dL (1.6-2.6); Potassium 3.6 mmol/L (3.5-5.1); Sodium 139 mmol/L (136-145)
[2022-04-30 06:19] LABS: Hemoglobin 8.7 g/dL (14.0-18.0); Mean Corpuscular HGB CONC 34.4 g/dL (32.0-36.0); Mean Corpuscular Hemoglobin 40.7 pg (27.0-31.0); Mean Platelet Volume 10.1 fL (7.4-10.4); Platelet Count 21 thou/uL (130-400); RBC Distribution Width 16.2 % (11.5-14.5); Red Blood Cell (RBC) Count 2.15 mill/uL (4.70-6.10); White Blood Cell (WBC) Count 3.3 thou/uL (4.8-10.8)
[2022-04-30 06:22] LABS: Band 10 % (5-11); Eosinophils 1 % (0-10); Lymphocytes 20 % (21-51); MDiff Complete? YES; Macrocytosis MODERATE=16-30 cells (100X) (0-5/hpf); Monocytes 3 % (0-10); Neutrophil 66 % (42-75); Platelet Morphology Comment Appears Decreased
[2022-04-30] MEDS: Mometasone 200 MCG/Formoterol 5 MCG 120 PUFF INHALER INH SCH (06:55)
[2022-04-30 08:22] VITALS: BP 95/60; TEMP 97.7
[2022-04-30] MEDS: Thiamine 100 MG TAB PO SCH (08:48)
[2022-04-30] MEDS: levETIRAcetam 500 MG TAB PO SCH (08:48)
[2022-04-30] MEDS: Multivit, Chewable SF 1 TAB PO SCH (08:49)
[2022-04-30] MEDS: Folic Acid 1 MG TAB PO SCH (08:49)
== END 2022-04-30 11:10 | disposition home or self-care (01) | DRG 871 ==
LOC: ERS 11:26 → IMCU/EMU 14:39 → T4-A 04-28 21:22
PROVIDERS: ADMIT Internal Medicine; ATTEND Internal Medicine
DX: A41.9 Sepsis, unspecified organism (principal); J18.9 Pneumonia, unspecified organism; R65.21 Severe sepsis with septic shock; J96.21 Acute and chronic respiratory failure with hypoxia; C83.30 Diffuse large B-cell lymphoma, unspecified site; Z94.84 Stem cells transplant status; Z20.822 Contact with and (suspected) exposure to COVID-19; G40.909 Epilepsy, unspecified, not intractable, without status epilepticus; Z96.653 Presence of artificial knee joint, bilateral; R31.29 Other microscopic hematuria; D69.59 Other secondary thrombocytopenia; T45.1X5A Adverse effect of antineoplastic and immunosuppressive drugs, initial encounter; E03.9 Hypothyroidism, unspecified; D63.8 Anemia in other chronic diseases classified elsewhere; Z85.828 Personal history of other malignant neoplasm of skin; Z79.899 Other long term (current) drug therapy; Z79.890 Hormone replacement therapy; Z87.891 Personal history of nicotine dependence
CPT/HCPCS: 36415; 71045; 71275; 74230; 80048; 80053; 80061; 80076; 80202; 81003; 81015; 82550; 83036; 83605; 83690; 83735; 83880; 84145; 84443; 84484; 85025; 85060; 85379; 85610; 85730; 86850; 86900; 86901; 87040; 87081; 87449; 87899; 93005; 94640; 94644; 94664; 96365; 96366; 96367; 96375; C9113; J0692; J1100; J1642; J1956; J3370; J3475; J3490; J7050; J7611; J7620; U0002

== ENCOUNTER 2022-05-17 07:31 | Inpatient (IN) | payer MEDICARE ==
[2022-05-17] MEDS ORDERED: Vancomycin 1 GM/200 ML BAG ONE (08:00)
[2022-05-17] MEDS ORDERED: methylPREDNISolone Sod Succ/PF 125 MG/2 ML VIAL ONE (08:00)
[2022-05-17 08:01] LABS: Hemoglobin 10.4 g/dL (14.0-18.0); Mean Corpuscular HGB CONC 34.9 g/dL (32.0-36.0); Mean Platelet Volume 10.8 fL (7.4-10.4); Platelet Count 30 thou/uL (130-400); RBC Distribution Width 15.9 % (11.5-14.5); Red Blood Cell (RBC) Count 2.54 mill/uL (4.70-6.10); White Blood Cell (WBC) Count 6.5 thou/uL (4.8-10.8)
[2022-05-17 08:12] LABS: INR-International Normal Ratio 1.2; PTT 26.4 sec (22.9-36.1); Prothrombin Time 15.1 sec (12.0-14.7)
[2022-05-17 08:15] LABS: ALT (SGPT) 22 U/L (8-55); AST (SGOT) 20 U/L (5-34); Albumin 3.7 g/dL (3.4-4.8); Alkaline Phosphatase 79 U/L (40-110); Anion Gap 13 mmol/L (10-20); BUN (Urea Nitrogen) 15 mg/dL (8.4-25.7); Bilirubin, Total 1.3 mg/dL (0.2-1.2); Calc. Creatinine Clearance 0 mL/min (70-130); Calcium 9.5 mg/dL (7.8-10.44); Carbon Dioxide 27 mmol/L (23-31); Chloride 100 mmol/L (98-107); Estimated GFR 66; Globulin 2.2 g/dL (2.4-3.5); Glucose 111 mg/dL (83-110); Potassium 4.2 mmol/L (3.5-5.1); Protein, Total 5.9 g/dL (5.8-8.1); Sodium 136 mmol/L (136-145)
[2022-05-17 08:29] LABS: Band 6 % (5-11); Lymphocytes 21 % (21-51); MDiff Complete? YES; Monocytes 23 % (0-10); Neutrophil 50 % (42-75); Nucleated RBC 3 % (0); Platelet Morphology Comment Appears Decreased; RBC Morphology Normal
[2022-05-17] MEDS ORDERED: Piperacillin/Tazobactam 4.5 GM VIAL ONE (08:38)
[2022-05-17 09:52] LABS: SARS-CoV-2 NAA Rapid Test Not Detected (NotDetected)
[2022-05-17] MEDS ORDERED: Ondansetron ODT 4 MG TAB PO PRN (09:57)
[2022-05-17] MEDS ORDERED: HYDROcodone/Acetaminophen 5/325 mg Tablet PO PRN (09:57)
[2022-05-17] MEDS ORDERED: Ondansetron PF 4 MG/2 ML Vial IVP PRN (09:57)
[2022-05-17] MEDS ORDERED: Acetaminophen 325 MG TAB PO PRN (09:57)
[2022-05-17 10:30] LABS: Lactic Acid 1.5 mmol/L (0.5-2.2)
[2022-05-17 10:42] LABS: Troponin I 0.014 ng/mL (< 0.028)
[2022-05-17] MEDS ORDERED: Vancomycin 1 GM in Premix Bag 1 BAG IVPB SCH (11:30)
[2022-05-17] MEDS: methylPREDNISolone Sod Succ/PF 125 MG/2 ML VIAL IVP SCH ×3 (12:19→22:22)
[2022-05-17 14:14] VITALS: BMI 27.5
[2022-05-17] MEDS ORDERED: Albuterol Sulfate 2.5 mg/3 ml Neb NEB PRN (17:52)
[2022-05-17 20:30] LABS: Legionella Urinary Ag Negative (Negative); Strep pneumo Urine Ag NEGATIVE (NEGATIVE)
[2022-05-17] MEDS ORDERED: VANCOMYCIN 1.25 GM/250 ML BAG IVPB SCH (21:00)
[2022-05-17] MEDS: VANCOMYCIN 1.25 GM/250 ML BAG 1.25 GM in Premix Bag 1 BAG IVPB SCH (21:45)
[2022-05-17] MEDS: Famotidine 20 MG TAB PO SCH (22:22)
[2022-05-17] MEDS: levETIRAcetam 500 MG TAB PO SCH (22:22)
[2022-05-17] MEDS: Acyclovir 800 mg Tablet PO SCH (22:23)
[2022-05-17] MEDS: Cefepime 2 GM in Sodium Chloride 0.9% 100 ML IVPB SCH (22:45)
[2022-05-18] MEDS: methylPREDNISolone Sod Succ/PF 125 MG/2 ML VIAL IVP SCH ×2 (06:00→11:15)
[2022-05-18 07:14] LABS: Hemoglobin 7.9 g/dL (14.0-18.0); Mean Corpuscular HGB CONC 34.7 g/dL (32.0-36.0); Mean Corpuscular Hemoglobin 40.7 pg (27.0-31.0); Mean Platelet Volume 11.1 fL (7.4-10.4); Platelet Count 24 thou/uL (130-400); RBC Distribution Width 15.6 % (11.5-14.5); Red Blood Cell (RBC) Count 1.95 mill/uL (4.70-6.10)
[2022-05-18 07:15] LABS: Vancomycin, Trough 15.2 ug/mL
[2022-05-18 07:19] LABS: Anion Gap 12 mmol/L (10-20); BUN (Urea Nitrogen) 15 mg/dL (8.4-25.7); Calc. Creatinine Clearance 108 mL/min (70-130); Calcium 9.1 mg/dL (7.8-10.44); Carbon Dioxide 25 mmol/L (23-31); Chloride 106 mmol/L (98-107); Estimated GFR 93; Glucose 202 mg/dL (83-110); Potassium 3.8 mmol/L (3.5-5.1); Sodium 139 mmol/L (136-145)
[2022-05-18] MEDS ORDERED: Enoxaparin Sodium 40 MG/0.4 ML SYRINGE SC SCH (09:00)
[2022-05-18 09:15] LABS: Band 23 % (5-11); Lymphocytes 11 % (21-51); MDiff Complete? YES; Macrocytosis MODERATE=16-30 cells (100X) (0-5/hpf); Metamyelocyte 1 % (0-0); Monocytes 7 % (0-10); Neutrophil 58 % (42-75); Platelet Morphology Comment Appears Decreased; Polychromasia MODERATE = 3-4 cells (100X) (0-2/hpf)
[2022-05-18] MEDS: Acyclovir 800 mg Tablet PO SCH ×2 (10:06→23:12)
[2022-05-18] MEDS: Famotidine 20 MG TAB PO SCH ×2 (10:07→21:14)
[2022-05-18] MEDS: Levothyroxine Sodium 88 MCG TAB PO SCH (10:07)
[2022-05-18] MEDS: levETIRAcetam 500 MG TAB PO SCH ×2 (10:07→21:14)
[2022-05-18] MEDS: Cefepime 2 GM in Sodium Chloride 0.9% 100 ML IVPB SCH ×2 (10:08→21:14)
[2022-05-18] MEDS: VANCOMYCIN 1.25 GM/250 ML BAG 1.25 GM in Premix Bag 1 BAG IVPB SCH ×3 (10:09→23:12)
[2022-05-18] MEDS: Mometasone/Formoterol 200/5 60 PUFF INH SCH (19:35)
[2022-05-18] MEDS: Guaifenesin DM 100-10/5 ML UDCUP PO PRN (21:15)
[2022-05-19] MEDS: Mometasone/Formoterol 200/5 60 PUFF INH SCH (06:45)
[2022-05-19] MEDS ORDERED: methylPREDNISolone Sod Succ/PF 125 MG/2 ML VIAL IVP SCH (09:00)
[2022-05-19] MEDS: Guaifenesin DM 100-10/5 ML UDCUP PO PRN (09:12)
[2022-05-19] MEDS: Cefepime 2 GM in Sodium Chloride 0.9% 100 ML IVPB SCH (09:13)
[2022-05-19] MEDS: levETIRAcetam 500 MG TAB PO SCH (09:19)
[2022-05-19] MEDS: Acyclovir 800 mg Tablet PO SCH (09:19)
[2022-05-19] MEDS: Levothyroxine Sodium 88 MCG TAB PO SCH (09:19)
[2022-05-19] MEDS: Famotidine 20 MG TAB PO SCH (09:19)
[2022-05-19 09:27] LABS: Hemoglobin 8.6 g/dL (14.0-18.0); Mean Corpuscular HGB CONC 33.8 g/dL (32.0-36.0); Mean Corpuscular Hemoglobin 39.8 pg (27.0-31.0); Mean Platelet Volume 11.3 fL (7.4-10.4); Platelet Count 23 thou/uL (130-400); RBC Distribution Width 15.5 % (11.5-14.5); Red Blood Cell (RBC) Count 2.15 mill/uL (4.70-6.10); White Blood Cell (WBC) Count 2.8 thou/uL (4.8-10.8)
[2022-05-19] MEDS: VANCOMYCIN 1.25 GM/250 ML BAG 1.25 GM in Premix Bag 1 BAG IVPB SCH (09:58)
[2022-05-19 10:29] LABS: Band 16 % (5-11); Lymphocytes 15 % (21-51); Neutrophil 60 % (42-75)
[2022-05-19 10:32] LABS: MDiff Complete? YES
[2022-05-19 10:33] LABS: Monocytes 9 % (0-10); Polychromasia MODERATE = 3-4 cells (100X) (0-2/hpf)
[2022-05-19 10:41] LABS: Platelet Morphology Comment Appears Decreased
[2022-05-19 16:25] VITALS: BP 114/66; TEMP 98
== END 2022-05-19 16:29 | disposition home or self-care (01) | DRG 193 ==
LOC: ERS 07:31 → SURG B 11:00
PROVIDERS: ADMIT Internal Medicine; ATTEND Internal Medicine
DX: J18.9 Pneumonia, unspecified organism (principal); J96.21 Acute and chronic respiratory failure with hypoxia; D61.810 Antineoplastic chemotherapy induced pancytopenia; J44.0 Chronic obstructive pulmonary disease with (acute) lower respiratory infection; J44.1 Chronic obstructive pulmonary disease with (acute) exacerbation; D84.821 Immunodeficiency due to drugs; C83.30 Diffuse large B-cell lymphoma, unspecified site; Z94.84 Stem cells transplant status; Z20.822 Contact with and (suspected) exposure to COVID-19; K21.9 Gastro-esophageal reflux disease without esophagitis; G40.909 Epilepsy, unspecified, not intractable, without status epilepticus; T45.1X5A Adverse effect of antineoplastic and immunosuppressive drugs, initial encounter; Y95 Nosocomial condition; Z96.653 Presence of artificial knee joint, bilateral; Z79.51 Long term (current) use of inhaled steroids; Z79.890 Hormone replacement therapy; Z98.890 Other specified postprocedural states; Z87.891 Personal history of nicotine dependence; Z79.899 Other long term (current) drug therapy
CPT/HCPCS: 36415; 36416; 71045; 80048; 80053; 80202; 83605; 84145; 84484; 85025; 85610; 85730; 87040; 87449; 87899; 93005; 94640; 94760; 96365; 96367; 96375; J0692; J1642; J1650; J1956; J2543; J2930; J3370; J3490; J7620

== ENCOUNTER 2022-05-27 09:14 | Outpatient (CLI) | payer MEDICARE | END 2022-05-27 09:15 | disposition home or self-care (01) | LOC: RAD 09:14 | PROVIDERS: ATTEND Internal Medicine Critical Care Medicine | DX: R06.00 Dyspnea, unspecified (principal); C88.0 Waldenstrom macroglobulinemia; D70.8 Other neutropenia; C83.31 Diffuse large B-cell lymphoma, lymph nodes of head, face, and neck | CPT/HCPCS: 71046; 85025 ==

== ENCOUNTER 2022-06-18 12:25 | Day surgery (SDC) | payer MEDICARE ==
[2022-06-18] MEDS ORDERED: Acetaminophen 500 MG TAB ONE (12:26)
[2022-06-18] MEDS ORDERED: diphenhydrAMINE 25 MG CAP ONE (12:27)
[2022-06-18 16:52] VITALS: BP 97/52; TEMP 97.9
== END 2022-06-18 16:56 | disposition home or self-care (01) ==
LOC: ONC/OP 12:25
PROVIDERS: ATTEND Internal Medicine Hematology & Oncology
PROC: 30233N1 Transfusion of Nonautologous Red Blood Cells into Peripheral Vein, Percutaneous Approach (ICD-10-PCS; principal; 2022-06-18)
DX: D64.9 Anemia, unspecified (principal)
CPT/HCPCS: 36430; 86850; 86900; 86901; J1642; P9016

== ENCOUNTER 2022-07-30 10:15 | Outpatient (CLI) | payer MEDICARE | END 2022-07-30 10:16 | disposition home or self-care (01) | LOC: PET 10:15 | PROVIDERS: ATTEND Internal Medicine Hematology & Oncology | DX: C83.31 Diffuse large B-cell lymphoma, lymph nodes of head, face, and neck (principal) | CPT/HCPCS: 78815; A9552 ==

== ENCOUNTER 2022-09-03 08:33 | Inpatient (IN) | payer MEDICARE ==
[2022-09-03] MEDS ORDERED: NOREPINEPHRINE 8 MG/250 ML-D5W 250 ML ONE (08:46)
[2022-09-03] MEDS ORDERED: levETIRAcetam 500 MG/5 ML VIAL ONE (09:50)
[2022-09-03 10:29] LABS: ALT (SGPT) 33 U/L (8-55); AST (SGOT) 26 U/L (5-34); Albumin 2.8 g/dL (3.4-4.8); Alkaline Phosphatase 85 U/L (40-110); Anion Gap 19 mmol/L (10-20); BUN (Urea Nitrogen) 29 mg/dL (8.4-25.7); Bilirubin, Total 0.9 mg/dL (0.2-1.2); CK (CPK) 22 U/L (30-200); Calc. Creatinine Clearance 0 mL/min (70-130); Carbon Dioxide 24 mmol/L (23-31); Chloride 93 mmol/L (98-107); Estimated GFR 41; Globulin 2.3 g/dL (2.4-3.5); Glucose 253 mg/dL (83-110); Magnesium 1.6 mg/dL (1.6-2.6); Potassium 4.4 mmol/L (3.5-5.1); Protein, Total 5.1 g/dL (5.8-8.1); Sodium 132 mmol/L (136-145)
[2022-09-03 10:38] LABS: Reflex for Review?? NO
[2022-09-03 10:39] LABS: Hemoglobin 10.8 g/dL (14.0-18.0); Mean Corpuscular HGB CONC 32.2 g/dL (32.0-36.0); Mean Corpuscular Hemoglobin 37.1 pg (27.0-31.0); Mean Platelet Volume 11.6 fL (7.4-10.4); Platelet Count 22 thou/uL (130-400); RBC Distribution Width 14.1 % (11.5-14.5); White Blood Cell (WBC) Count 8.8 thou/uL (4.8-10.8)
[2022-09-03 10:50] LABS: CKMB 1.1 ng/mL (0-6.6)
[2022-09-03 11:11] LABS: Band 27 % (5-11); Lymphocytes 5 % (21-51); MDiff Complete? YES; Macrocytosis MODERATE=16-30 cells (100X) (0-5/hpf); Metamyelocyte 8 % (0-0); Monocytes 29 % (0-10); Myelocyte 1 % (0-0); Neutrophil 26 % (42-75); Nucleated RBC 1 % (0); Platelet Morphology Comment Appears Decreased; Polychromasia SLIGHT = 2-3 cells (100X) (0-2/hpf); Reactive Lymphocytes 4 % (0-10)
[2022-09-03] MEDS ORDERED: Senokot S 8.6-50 MG TAB PO PRN (12:14)
[2022-09-03] MEDS ORDERED: NOREPINEPHRINE 8 MG/250 ML-D5W 250 ML IVPB SCH (12:15)
[2022-09-03] MEDS ORDERED: Sodium Chloride 0.9% 1,000 ML IV SCH (12:15)
[2022-09-03 12:39] LABS: Hemoglobin 10.2 g/dL (14.0-18.0); Mean Corpuscular HGB CONC 32.2 g/dL (32.0-36.0); Mean Corpuscular Hemoglobin 37.4 pg (27.0-31.0); Platelet Count 20 thou/uL (130-400); RBC Distribution Width 14.1 % (11.5-14.5); Red Blood Cell (RBC) Count 2.71 mill/uL (4.70-6.10); White Blood Cell (WBC) Count 6.6 thou/uL (4.8-10.8)
[2022-09-03] MEDS ORDERED: Albuterol 200 PUFF (6.7GM INHALER) INH PRN (13:02)
[2022-09-03 13:08] LABS: ALT (SGPT) 31 U/L (8-55); AST (SGOT) 24 U/L (5-34); Albumin 2.7 g/dL (3.4-4.8); Alkaline Phosphatase 72 U/L (40-110); Anion Gap 16 mmol/L (10-20); BUN (Urea Nitrogen) 29 mg/dL (8.4-25.7); Bilirubin, Total 0.8 mg/dL (0.2-1.2); Calc. Creatinine Clearance 57 mL/min (70-130); Calcium 8.6 mg/dL (7.8-10.44); Carbon Dioxide 27 mmol/L (23-31); Chloride 94 mmol/L (98-107); Estimated GFR 42; Globulin 2.3 g/dL (2.4-3.5); Glucose 294 mg/dL (83-110); Potassium 4.6 mmol/L (3.5-5.1); Sodium 132 mmol/L (136-145)
[2022-09-03 13:12] LABS: Troponin I 0.011 ng/mL (< 0.028)
[2022-09-03 13:18] LABS: Band 25 % (5-11); Dohle Bodies SLIGHT; Large Platelets SLIGHT; Lymphocytes 3 % (21-51); MDiff Complete? YES; Macrocytosis SLIGHT = 6-15 cells (100X) (0-5/hpf); Metamyelocyte 7 % (0-0); Monocytes 13 % (0-10); Myelocyte 2 % (0-0); Neutrophil 47 % (42-75); Nucleated RBC 1 % (0); Ovalocytes SLIGHT = 2-5 cells (100X) (0-1/hpf); Platelet Morphology Comment Appears Decreased; Polychromasia MODERATE = 3-4 cells (100X) (0-2/hpf); Reactive Lymphocytes 3 % (0-10); Vacuoles SLIGHT
[2022-09-03] MEDS ORDERED: Hydrocortisone Sod Succ/PF 100 mg/2 ml Vial ONE (13:51)
[2022-09-03] MEDS ORDERED: Cefepime 2 GM VIAL ONE (13:52)
[2022-09-03] MEDS ORDERED: Vancomycin 1.5 GRAM/300 ML BAG 1.5 GM in Premix Bag 1 BAG IVPB SCH (14:00)
[2022-09-03] MEDS: Hydrocortisone Sod Succ/PF 100 mg/2 ml Vial IVP SCH ×2 (14:00→20:58)
[2022-09-03] MEDS: Cefepime 2 GM in Sodium Chloride 0.9% 100 ML IVPB SCH ×2 (14:01→22:18)
[2022-09-03] MEDS ORDERED: Albuterol Sulfate 2.5 mg/0.5 ml Neb NEB PRN (15:01)
[2022-09-03] MEDS ORDERED: Benzonatate 100 MG CAP ONE (15:01)
[2022-09-03] MEDS: Benzonatate 100 MG CAP PO SCH ×2 (15:06→20:58)
[2022-09-03 16:29] LABS: Lactic Acid 2.9 mmol/L (0.5-2.2)
[2022-09-03 16:36] LABS: Troponin I 0.011 ng/mL (< 0.028)
[2022-09-03] MEDS ORDERED: Acetaminophen 325 MG TAB ONE (16:36)
[2022-09-03] MEDS ORDERED: hydrALAZINE 25 MG TAB ONE (16:36)
[2022-09-03] MEDS ORDERED: Heparin 10,000 UNITS/ 10 ML VIAL ONE (16:37)
[2022-09-03] MEDS ORDERED: Ondansetron ODT 4 MG TAB SL PRN (20:15)
[2022-09-03] MEDS ORDERED: Ondansetron PF 4 MG/2 ML Vial IVP PRN (20:15)
[2022-09-03] MEDS: Budesonide 0.5 MG/2 ML NEB NEB SCH (20:17)
[2022-09-03] MEDS: levETIRAcetam 500 MG TAB PO SCH (20:58)
[2022-09-03 21:14] VITALS: BMI 31.1
[2022-09-03] MEDS: Acyclovir 800 mg Tablet PO SCH (21:21)
[2022-09-03 21:51] LABS: SARS-CoV-2 NAA Rapid Test Not Detected (NotDetected)
[2022-09-04] MEDS ORDERED: Benzonatate 100 MG CAP PO SCH (04:15)
[2022-09-04 05:03] LABS: Hemoglobin 8.3 g/dL (14.0-18.0); Mean Corpuscular HGB CONC 31.1 g/dL (32.0-36.0); Mean Corpuscular Hemoglobin 35.8 pg (27.0-31.0); Mean Platelet Volume 12.6 fL (7.4-10.4); Platelet Count 12 thou/uL (130-400); RBC Distribution Width 13.9 % (11.5-14.5); Red Blood Cell (RBC) Count 2.33 mill/uL (4.70-6.10); White Blood Cell (WBC) Count 2.1 thou/uL (4.8-10.8)
[2022-09-04 05:23] LABS: ALT (SGPT) 25 U/L (8-55); AST (SGOT) 24 U/L (5-34); Albumin 2.4 g/dL (3.4-4.8); Alkaline Phosphatase 59 U/L (40-110); Anion Gap 13 mmol/L (10-20); BUN (Urea Nitrogen) 30 mg/dL (8.4-25.7); Bilirubin, Total 0.4 mg/dL (0.2-1.2); Calc. Creatinine Clearance 87 mL/min (70-130); Calcium 8.7 mg/dL (7.8-10.44); Carbon Dioxide 30 mmol/L (23-31); Chloride 94 mmol/L (98-107); Estimated GFR 73; Globulin 2.2 g/dL (2.4-3.5); Glucose 201 mg/dL (83-110); Potassium 4.2 mmol/L (3.5-5.1); Protein, Total 4.6 g/dL (5.8-8.1); Sodium 133 mmol/L (136-145)
[2022-09-04] MEDS ORDERED: Levothyroxine Sodium 75 MCG TAB PO SCH (06:00)
[2022-09-04] MEDS: Hydrocortisone Sod Succ/PF 100 mg/2 ml Vial IVP SCH ×3 (06:12→21:21)
[2022-09-04] MEDS: Levothyroxine Sodium 88 MCG TAB PO SCH (06:12)
[2022-09-04] MEDS: Cefepime 2 GM in Sodium Chloride 0.9% 100 ML IVPB SCH ×3 (06:12→21:21)
[2022-09-04 06:28] LABS: Band 21 % (5-11); Hypochromia SLIGHT = 6-15 cells (100X) (0-5/hpf); Lymphocytes 22 % (21-51); MDiff Complete? YES; Macrocytosis MODERATE=16-30 cells (100X) (0-5/hpf); Metamyelocyte 11 % (0-0); Monocytes 10 % (0-10); Neutrophil 36 % (42-75); Platelet Morphology Comment Appears Decreased; Polychromasia SLIGHT = 2-3 cells (100X) (0-2/hpf)
[2022-09-04] MEDS: Budesonide 0.5 MG/2 ML NEB NEB SCH ×2 (07:36→18:14)
[2022-09-04] MEDS: Acyclovir 800 mg Tablet PO SCH ×2 (09:16→21:20)
[2022-09-04] MEDS: Benzonatate 100 MG CAP PO SCH ×3 (09:24→21:21)
[2022-09-04] MEDS: levETIRAcetam 500 MG TAB PO SCH ×2 (09:48→21:20)
[2022-09-04 10:05] LABS: Hemoglobin 8.3 g/dL (14.0-18.0); Mean Corpuscular HGB CONC 32.1 g/dL (32.0-36.0); Mean Corpuscular Hemoglobin 36.9 pg (27.0-31.0); Mean Platelet Volume 12.1 fL (7.4-10.4); Platelet Count 10 thou/uL (130-400); RBC Distribution Width 13.7 % (11.5-14.5); Red Blood Cell (RBC) Count 2.26 mill/uL (4.70-6.10); White Blood Cell (WBC) Count 1.8 thou/uL (4.8-10.8)
[2022-09-04] MEDS ORDERED: Magnesium 2 GM/50 ML(in water) 2 GM in Premix Bag 1 BAG IVPB SCH (11:15)
[2022-09-04 11:42] LABS: Band 27 % (5-11); Lymphocytes 13 % (21-51); MDiff Complete? YES; Macrocytosis SLIGHT = 6-15 cells (100X) (0-5/hpf); Metamyelocyte 4 % (0-0); Monocytes 13 % (0-10); Myelocyte 3 % (0-0); Neutrophil 40 % (42-75); Nucleated RBC 1 % (0); Platelet Morphology Comment Appears Decreased; Polychromasia SLIGHT = 2-3 cells (100X) (0-2/hpf)
[2022-09-04] MEDS ORDERED: VANCOMYCIN 2 GRAM/500 ML BAG 2 GM in Premix Bag 1 BAG IVPB SCH (14:00)
[2022-09-04] MEDS: Acetaminophen 325 MG TAB PO PRN (16:39)
[2022-09-05 04:27] LABS: Magnesium 2.1 mg/dL (1.6-2.6)
[2022-09-05] MEDS: Cefepime 2 GM in Sodium Chloride 0.9% 100 ML IVPB SCH ×3 (05:05→22:01)
[2022-09-05] MEDS: Levothyroxine Sodium 88 MCG TAB PO SCH (05:05)
[2022-09-05] MEDS: Hydrocortisone Sod Succ/PF 100 mg/2 ml Vial IVP SCH ×3 (05:06→22:01)
[2022-09-05] MEDS: Acetaminophen 325 MG TAB PO PRN ×3 (06:10→22:29)
[2022-09-05] MEDS: Budesonide 0.5 MG/2 ML NEB NEB SCH ×2 (07:06→18:51)
[2022-09-05] MEDS: Acyclovir 800 mg Tablet PO SCH ×2 (08:37→22:01)
[2022-09-05] MEDS: Benzonatate 100 MG CAP PO SCH ×3 (08:37→21:14)
[2022-09-05] MEDS: levETIRAcetam 500 MG TAB PO SCH ×2 (08:38→21:15)
[2022-09-05] MEDS ORDERED: Midodrine HCl 5 MG TAB PO SCH (09:15)
[2022-09-05 11:12] LABS: Mean Corpuscular HGB CONC 31.2 g/dL (32.0-36.0); Mean Corpuscular Hemoglobin 35.6 pg (27.0-31.0); Mean Platelet Volume 13.9 fL (7.4-10.4); Platelet Count 10 thou/uL (130-400); RBC Distribution Width 13.7 % (11.5-14.5); Red Blood Cell (RBC) Count 2.24 mill/uL (4.70-6.10); White Blood Cell (WBC) Count 1.7 thou/uL (4.8-10.8)
[2022-09-05 11:32] LABS: Anion Gap 13 mmol/L (10-20); BUN (Urea Nitrogen) 31 mg/dL (8.4-25.7); Calc. Creatinine Clearance 109 mL/min (70-130); Calcium 8.4 mg/dL (7.8-10.44); Carbon Dioxide 29 mmol/L (23-31); Chloride 96 mmol/L (98-107); Estimated GFR 90; Glucose 265 mg/dL (83-110); Potassium 3.8 mmol/L (3.5-5.1); Sodium 134 mmol/L (136-145)
[2022-09-05 11:56] LABS: Band 8 % (5-11); Elliptocytes SLIGHT = 2-5 cells (100X) (0-1/hpf); Hypochromia SLIGHT = 6-15 cells (100X) (0-5/hpf); Large Platelets SLIGHT; Lymphocytes 26 % (21-51); MDiff Complete? YES; Macrocytosis MODERATE=16-30 cells (100X) (0-5/hpf); Metamyelocyte 3 % (0-0); Monocytes 26 % (0-10); Neutrophil 37 % (42-75); Platelet Morphology Comment Appears Decreased
[2022-09-05 13:41] LABS: Vancomycin, Trough 8.6 ug/mL
[2022-09-05] MEDS: Midodrine HCl 5 MG TAB PO SCH ×2 (14:48→21:14)
[2022-09-05] MEDS: VANCOMYCIN 1.25 GM/250 ML BAG 1.25 GM in Premix Bag 1 BAG IVPB SCH (15:52)
[2022-09-06] MEDS: VANCOMYCIN 1.25 GM/250 ML BAG 1.25 GM in Premix Bag 1 BAG IVPB SCH ×2 (04:05→15:53)
[2022-09-06 04:28] LABS: Anion Gap 11 mmol/L (10-20); BUN (Urea Nitrogen) 25 mg/dL (8.4-25.7); Calc. Creatinine Clearance 130 mL/min (70-130); Calcium 8.8 mg/dL (7.8-10.44); Carbon Dioxide 33 mmol/L (23-31); Chloride 99 mmol/L (98-107); Estimated GFR 95; Glucose 178 mg/dL (83-110); Potassium 3.9 mmol/L (3.5-5.1); Sodium 139 mmol/L (136-145)
[2022-09-06 04:40] LABS: Hemoglobin 8.8 g/dL (14.0-18.0); Mean Corpuscular HGB CONC 31.6 g/dL (32.0-36.0); Mean Corpuscular Hemoglobin 35.4 pg (27.0-31.0); Platelet Count 9 thou/uL (130-400); RBC Distribution Width 13.7 % (11.5-14.5); Red Blood Cell (RBC) Count 2.48 mill/uL (4.70-6.10); White Blood Cell (WBC) Count 1.8 thou/uL (4.8-10.8)
[2022-09-06] MEDS: Hydrocortisone Sod Succ/PF 100 mg/2 ml Vial IVP SCH ×3 (05:12→21:10)
[2022-09-06 05:58] LABS: Band 8 % (5-11); Hypochromia SLIGHT = 6-15 cells (100X) (0-5/hpf); Lymphocytes 24 % (21-51); MDiff Complete? YES; Macrocytosis MODERATE=16-30 cells (100X) (0-5/hpf); Monocytes 24 % (0-10); Neutrophil 36 % (42-75); Platelet Morphology Comment Appears Decreased; Polychromasia SLIGHT = 2-3 cells (100X) (0-2/hpf); Reactive Lymphocytes 4 % (0-10)
[2022-09-06] MEDS: Budesonide 0.5 MG/2 ML NEB NEB SCH ×2 (06:14→18:33)
[2022-09-06] MEDS: Levothyroxine Sodium 88 MCG TAB PO SCH (07:17)
[2022-09-06] MEDS: levETIRAcetam 500 MG TAB PO SCH ×2 (09:56→21:07)
[2022-09-06] MEDS: Benzonatate 100 MG CAP PO SCH ×3 (09:56→21:07)
[2022-09-06] MEDS: Midodrine HCl 5 MG TAB PO SCH ×3 (09:57→21:07)
[2022-09-06] MEDS: Cefepime 2 GM in Sodium Chloride 0.9% 100 ML IVPB SCH ×3 (09:57→18:11)
[2022-09-06] MEDS: Acyclovir 800 mg Tablet PO SCH ×2 (10:34→21:07)
[2022-09-06] MEDS ORDERED: ALPRAZolam 1 MG TAB PO PRN (14:36)
[2022-09-06] MEDS: Acetaminophen 325 MG TAB PO PRN (21:06)
[2022-09-07] MEDS: Cefepime 2 GM in Sodium Chloride 0.9% 100 ML IVPB SCH ×3 (02:20→17:26)
[2022-09-07 03:06] LABS: Hemoglobin 8.5 g/dL (14.0-18.0); Mean Corpuscular HGB CONC 32.4 g/dL (32.0-36.0); Mean Corpuscular Hemoglobin 36.5 pg (27.0-31.0); Mean Platelet Volume 10.4 fL (7.4-10.4); Platelet Count 15 thou/uL (130-400); RBC Distribution Width 13.8 % (11.5-14.5); Red Blood Cell (RBC) Count 2.32 mill/uL (4.70-6.10); White Blood Cell (WBC) Count 1.7 thou/uL (4.8-10.8)
[2022-09-07 03:12] LABS: Vancomycin, Trough 15.4 ug/mL
[2022-09-07 03:23] LABS: ALT (SGPT) 64 U/L (8-55); AST (SGOT) 32 U/L (5-34); Albumin 2.5 g/dL (3.4-4.8); Alkaline Phosphatase 80 U/L (40-110); Anion Gap 10 mmol/L (10-20); BUN (Urea Nitrogen) 20 mg/dL (8.4-25.7); Band 12 % (5-11); Bilirubin, Total 0.6 mg/dL (0.2-1.2); Calc. Creatinine Clearance 135 mL/min (70-130); Calcium 8.8 mg/dL (7.8-10.44); Carbon Dioxide 34 mmol/L (23-31); Chloride 98 mmol/L (98-107); Estimated GFR 95; Globulin 1.8 g/dL (2.4-3.5); Glucose 183 mg/dL (83-110); Lymphocytes 16 % (21-51); MDiff Complete? YES; Macrocytosis SLIGHT = 6-15 cells (100X) (0-5/hpf); Monocytes 8 % (0-10); Neutrophil 60 % (42-75); Platelet Morphology Comment Appears Decreased; Potassium 3.4 mmol/L (3.5-5.1); Protein, Total 4.3 g/dL (5.8-8.1); Reactive Lymphocytes 4 % (0-10); Sodium 139 mmol/L (136-145)
[2022-09-07] MEDS: VANCOMYCIN 1.25 GM/250 ML BAG 1.25 GM in Premix Bag 1 BAG IVPB SCH ×2 (04:20→15:20)
[2022-09-07] MEDS: Hydrocortisone Sod Succ/PF 100 mg/2 ml Vial IVP SCH ×3 (04:24→23:44)
[2022-09-07] MEDS: Levothyroxine Sodium 88 MCG TAB PO SCH (04:24)
[2022-09-07] MEDS: Budesonide 0.5 MG/2 ML NEB NEB SCH ×2 (06:33→18:54)
[2022-09-07] MEDS: Acyclovir 800 mg Tablet PO SCH ×2 (09:12→21:05)
[2022-09-07] MEDS: levETIRAcetam 500 MG TAB PO SCH ×2 (09:12→21:04)
[2022-09-07] MEDS: Benzonatate 100 MG CAP PO SCH ×3 (09:12→21:05)
[2022-09-07] MEDS: Midodrine HCl 5 MG TAB PO SCH ×3 (09:12→21:05)
[2022-09-07] MEDS ORDERED: Potassium Chloride 20 MEQ TAB PO SCH (09:45)
[2022-09-07] MEDS ORDERED: guaiFENesin/Codeine 200 mg/20 mg 10 ml Cup PO PRN (14:56)
[2022-09-08] MEDS: Cefepime 2 GM in Sodium Chloride 0.9% 100 ML IVPB SCH ×3 (01:37→17:19)
[2022-09-08] MEDS: VANCOMYCIN 1.25 GM/250 ML BAG 1.25 GM in Premix Bag 1 BAG IVPB SCH ×2 (02:44→14:44)
[2022-09-08] MEDS: Levothyroxine Sodium 88 MCG TAB PO SCH (05:45)
[2022-09-08] MEDS: Budesonide 0.5 MG/2 ML NEB NEB SCH ×2 (06:49→18:53)
[2022-09-08 07:09] LABS: ALT (SGPT) 61 U/L (8-55); AST (SGOT) 26 U/L (5-34); Albumin 2.6 g/dL (3.4-4.8); Alkaline Phosphatase 82 U/L (40-110); Anion Gap 10 mmol/L (10-20); BUN (Urea Nitrogen) 17 mg/dL (8.4-25.7); Bilirubin, Total 0.5 mg/dL (0.2-1.2); Calc. Creatinine Clearance 140 mL/min (70-130); Calcium 8.5 mg/dL (7.8-10.44); Carbon Dioxide 33 mmol/L (23-31); Chloride 99 mmol/L (98-107); Estimated GFR 96; Globulin 1.7 g/dL (2.4-3.5); Glucose 167 mg/dL (83-110); Potassium 3.6 mmol/L (3.5-5.1); Protein, Total 4.3 g/dL (5.8-8.1); Sodium 138 mmol/L (136-145)
[2022-09-08 07:16] LABS: Hemoglobin 8.8 g/dL (14.0-18.0); Mean Corpuscular Hemoglobin 35.3 pg (27.0-31.0); Platelet Count 17 thou/uL (130-400); RBC Distribution Width 13.9 % (11.5-14.5); White Blood Cell (WBC) Count 1.9 thou/uL (4.8-10.8)
[2022-09-08 08:14] LABS: Band 8 % (5-11); Hypochromia SLIGHT = 6-15 cells (100X) (0-5/hpf); Large Platelets SLIGHT; Lymphocytes 28 % (21-51); MDiff Complete? YES; Macrocytosis MODERATE=16-30 cells (100X) (0-5/hpf); Monocytes 16 % (0-10); Neutrophil 48 % (42-75); Platelet Morphology Comment Appears Decreased; Polychromasia SLIGHT = 2-3 cells (100X) (0-2/hpf); Stomatocytes SLIGHT = 2-5 cells (100X) (0-1/hpf)
[2022-09-08] MEDS: predniSONE 5 MG TAB PO SCH (09:00)
[2022-09-08] MEDS: Acyclovir 800 mg Tablet PO SCH ×2 (09:00→20:43)
[2022-09-08] MEDS: Midodrine HCl 5 MG TAB PO SCH ×2 (09:00→20:43)
[2022-09-08] MEDS: Benzonatate 100 MG CAP PO SCH ×3 (09:00→20:43)
[2022-09-08] MEDS: levETIRAcetam 500 MG TAB PO SCH ×2 (09:01→20:43)
[2022-09-09] MEDS: Cefepime 2 GM in Sodium Chloride 0.9% 100 ML IVPB SCH ×3 (01:52→17:40)
[2022-09-09 02:11] LABS: Hemoglobin 8.8 g/dL (14.0-18.0); Mean Corpuscular HGB CONC 31.8 g/dL (32.0-36.0); Mean Corpuscular Hemoglobin 36.3 pg (27.0-31.0); Mean Platelet Volume 11.1 fL (7.4-10.4); Platelet Count 16 thou/uL (130-400); Red Blood Cell (RBC) Count 2.43 mill/uL (4.70-6.10); White Blood Cell (WBC) Count 3.2 thou/uL (4.8-10.8)
[2022-09-09 02:30] LABS: Vancomycin, Trough 18.7 ug/mL
[2022-09-09 02:38] LABS: Lymphocytes 10 % (21-51); MDiff Complete? YES; Macrocytosis SLIGHT = 6-15 cells (100X) (0-5/hpf); Monocytes 46 % (0-10); Neutrophil 44 % (42-75); Platelet Morphology Comment Appears Decreased
[2022-09-09 02:45] LABS: ALT (SGPT) 62 U/L (8-55); AST (SGOT) 34 U/L (5-34); Albumin 2.4 g/dL (3.4-4.8); Alkaline Phosphatase 79 U/L (40-110); Anion Gap 10 mmol/L (10-20); BUN (Urea Nitrogen) 18 mg/dL (8.4-25.7); Bilirubin, Total 0.6 mg/dL (0.2-1.2); Calc. Creatinine Clearance 130 mL/min (70-130); Calcium 8.5 mg/dL (7.8-10.44); Carbon Dioxide 33 mmol/L (23-31); Chloride 98 mmol/L (98-107); Estimated GFR 94; Globulin 1.7 g/dL (2.4-3.5); Glucose 122 mg/dL (83-110); Potassium 3.3 mmol/L (3.5-5.1); Protein, Total 4.1 g/dL (5.8-8.1); Sodium 138 mmol/L (136-145)
[2022-09-09] MEDS: VANCOMYCIN 1.25 GM/250 ML BAG 1.25 GM in Premix Bag 1 BAG IVPB SCH ×2 (03:22→14:31)
[2022-09-09] MEDS: Levothyroxine Sodium 88 MCG TAB PO SCH (05:40)
[2022-09-09] MEDS: Budesonide 0.5 MG/2 ML NEB NEB SCH ×2 (06:44→19:15)
[2022-09-09] MEDS: Acyclovir 800 mg Tablet PO SCH ×2 (08:43→20:49)
[2022-09-09] MEDS: Midodrine HCl 5 MG TAB PO SCH (08:43)
[2022-09-09] MEDS: Benzonatate 100 MG CAP PO SCH ×3 (08:43→20:49)
[2022-09-09] MEDS: levETIRAcetam 500 MG TAB PO SCH ×2 (08:43→20:49)
[2022-09-09] MEDS: predniSONE 5 MG TAB PO SCH (08:43)
[2022-09-09] MEDS: Fluticasone Propionate Nasal Spray 16 gm Bottle NASAL SCH (08:44)
[2022-09-09 10:07] LABS: Platelet Count 18 thou/uL (130-400)
[2022-09-09 14:55] LABS: Platelet Count 43 thou/uL (130-400)
[2022-09-09] MEDS: Acetaminophen 325 MG TAB PO PRN (20:49)
[2022-09-10] MEDS: VANCOMYCIN 1.25 GM/250 ML BAG 1.25 GM in Premix Bag 1 BAG IVPB SCH (02:12)
[2022-09-10] MEDS: Cefepime 2 GM in Sodium Chloride 0.9% 100 ML IVPB SCH ×2 (02:12→10:22)
[2022-09-10] MEDS: Levothyroxine Sodium 88 MCG TAB PO SCH (04:42)
[2022-09-10] MEDS: Budesonide 0.5 MG/2 ML NEB NEB SCH ×2 (07:30→18:50)
[2022-09-10] MEDS: levETIRAcetam 500 MG TAB PO SCH ×2 (07:55→20:40)
[2022-09-10] MEDS: predniSONE 5 MG TAB PO SCH (07:57)
[2022-09-10] MEDS: Midodrine HCl 5 MG TAB PO SCH (07:57)
[2022-09-10] MEDS: Acyclovir 800 mg Tablet PO SCH ×2 (07:57→20:40)
[2022-09-10] MEDS: Benzonatate 100 MG CAP PO SCH ×3 (07:57→20:40)
[2022-09-10] MEDS: Fluticasone Propionate Nasal Spray 16 gm Bottle NASAL SCH (07:58)
[2022-09-10] MEDS ORDERED: Fluconazole 100 MG TAB PO SCH (15:39)
[2022-09-10] MEDS: Acetaminophen 325 MG TAB PO PRN (22:30)
[2022-09-11] MEDS ORDERED: Vancomycin 1 GM in Premix Bag 1 BAG IVPB SCH (03:00)
[2022-09-11] MEDS: Levothyroxine Sodium 88 MCG TAB PO SCH (06:25)
[2022-09-11] MEDS: Budesonide 0.5 MG/2 ML NEB NEB SCH (07:13)
[2022-09-11 08:11] VITALS: TEMP 97.7
[2022-09-11] MEDS: Midodrine HCl 5 MG TAB PO SCH (08:19)
[2022-09-11] MEDS: Acyclovir 800 mg Tablet PO SCH (08:19)
[2022-09-11] MEDS: levETIRAcetam 500 MG TAB PO SCH (08:19)
[2022-09-11] MEDS: Benzonatate 100 MG CAP PO SCH (08:19)
[2022-09-11] MEDS: Fluticasone Propionate Nasal Spray 16 gm Bottle NASAL SCH (08:20)
[2022-09-11] MEDS ORDERED: Fluconazole 100 MG TAB PO SCH (09:00)
[2022-09-11 11:38] LABS: CMV DNA-PCR Test Negative (Negative)
[2022-09-11 11:40] VITALS: BP 105/64
== END 2022-09-11 11:40 | disposition home or self-care (01) | DRG 871 ==
LOC: ERS 08:33 → ERHOLD 12:16 → CCU 18:51 → ERHOLD 19:02 → CCU 19:43 → IMCU/EMU 09-05 15:54 → T4-B 09-07 20:50
PROVIDERS: ADMIT Student in an Organized Health Care Education/Training Program; ATTEND Internal Medicine
PROC: 3E033XZ Introduction of Vasopressor into Peripheral Vein, Percutaneous Approach (ICD-10-PCS; 2022-09-03)
PROC: 3E03329 Introduction of Other Anti-infective into Peripheral Vein, Percutaneous Approach (ICD-10-PCS; 2022-09-03)
PROC: 06HY33Z Insertion of Infusion Device into Lower Vein, Percutaneous Approach (ICD-10-PCS; 2022-09-03)
PROC: 30233R1 Transfusion of Nonautologous Platelets into Peripheral Vein, Percutaneous Approach (ICD-10-PCS; principal; 2022-09-09)
DX: A41.9 Sepsis, unspecified organism (principal); J18.9 Pneumonia, unspecified organism; R65.21 Severe sepsis with septic shock; J96.21 Acute and chronic respiratory failure with hypoxia; J44.0 Chronic obstructive pulmonary disease with (acute) lower respiratory infection; C83.30 Diffuse large B-cell lymphoma, unspecified site; J44.1 Chronic obstructive pulmonary disease with (acute) exacerbation; B19.10 Unspecified viral hepatitis B without hepatic coma; D61.818 Other pancytopenia; N17.9 Acute kidney failure, unspecified; Z94.84 Stem cells transplant status; I50.9 Heart failure, unspecified; I11.0 Hypertensive heart disease with heart failure; E03.9 Hypothyroidism, unspecified; Z96.653 Presence of artificial knee joint, bilateral; Z66 Do not resuscitate; G40.909 Epilepsy, unspecified, not intractable, without status epilepticus; D64.9 Anemia, unspecified; Z20.822 Contact with and (suspected) exposure to COVID-19; Z98.890 Other specified postprocedural states; Z87.891 Personal history of nicotine dependence; Z79.51 Long term (current) use of inhaled steroids; Z79.899 Other long term (current) drug therapy
CPT/HCPCS: 36415; 36430; 36556; 71045; 71260; 74177; 80048; 80053; 80202; 82550; 82553; 83605; 83735; 83880; 84484; 85025; 86644; 86850; 86900; 86901; 87040; 87070; 87205; 87497; 87811; 93005; 93306; 94640; 96374; 96375; J0692; J1644; J1720; J1953; J3370; J3475; J3490; J7050; J7512; J7620; J7626; P9035; U0002

== ENCOUNTER 2022-10-03 21:11 | Inpatient (IN) | payer MEDICARE ==
[~2022-10-03 21:11] MED LIST: Iopamidol-370 76% 500 ML 1 ML ONE
[2022-10-03] MEDS ORDERED: Erythromycin Base 0.5% Oint 1 GM TUBE ONE (21:16)
[2022-10-03] MEDS ORDERED: EPINEPHrine 1 MG/ML VIAL ONE ×2 (21:17→21:19)
[2022-10-03] MEDS ORDERED: EPINEPHrine 1 MG/10 ML Abboject SYRINGE ONE ×2 (21:17→21:18)
[2022-10-03] MEDS ORDERED: Sodium Bicarb 50 MEQ/50 ML Abboject 8.4% SYRINGE ONE (21:18)
[2022-10-03 21:44] LABS: Hemoglobin 8.1 g/dL (14.0-18.0); Red Blood Cell (RBC) Count 2.34 mill/uL (4.70-6.10); White Blood Cell (WBC) Count 16.1 10x3/uL (4.8-10.8)
[2022-10-03 21:54] LABS: INR-International Normal Ratio 1.5; Prothrombin Time 18.7 sec (12.0-14.7)
[2022-10-03 21:55] LABS: PTT 51.1 sec (22.9-36.1)
[2022-10-03 21:55] LABS: Actual Bicarbonate (HCO3a) 23.1 mEq/L (22-28); Analyzer IN Cardio ER; Base Excess (BEa) -7.1 mEq/L (-2.0 to +3.0); Calcium, Ionized (arterial) 1.03 mmol/L (1.12-1.30); Carboxyhemoglobin (COHb) 0.4 gm% (0.0-3.0); Hemoglobin (Hb) 7.4 g/dL (14.0-18.0); O2 Tension (PaO2), arterial 204.5 mmHg (> 70.0); Potassium - ABG Lab 2.76 mmol/L (3.70-5.30)
[2022-10-03 21:57] LABS: Albumin 2.3 g/dL (3.4-4.8)
[2022-10-03 21:58] LABS: Chloride 93 mmol/L (98-107); Potassium 3.8 mmol/L (3.5-5.1); Sodium 141 mmol/L (136-145)
[2022-10-03 21:59] LABS: Calcium 8.8 mg/dL (7.8-10.44)
[2022-10-03 22:00] LABS: Globulin 1.9 g/dL (2.4-3.5); Glucose 122 mg/dL (83-110); Protein, Total 4.2 g/dL (5.8-8.1)
[2022-10-03 22:01] LABS: Bilirubin, Total 0.7 mg/dL (0.2-1.2); Carbon Dioxide 24 mmol/L (23-31)
[2022-10-03 22:02] LABS: Alkaline Phosphatase 89 U/L (40-110)
[2022-10-03 22:03] LABS: CO2 Tension 83.8 mmHg (35.0-45.0); pH, Arterial 7.06 (7.35-7.45)
[2022-10-03 22:03] LABS: Calc. Creatinine Clearance 0 mL/min (70-130); Estimated GFR 46
[2022-10-03 22:04] LABS: Puncture Site RRA
[2022-10-03 22:04] LABS: BUN (Urea Nitrogen) 21 mg/dL (8.4-25.7)
[2022-10-03 22:05] LABS: ALT (SGPT) 11 U/L (8-55); AST (SGOT) 22 U/L (5-34)
[2022-10-03 22:14] LABS: Anion Gap 28 mmol/L (10-20); CKMB 1.6 ng/mL (0-6.6)
[2022-10-03 22:17] LABS: Anisocytosis SLIGHT = 6-15 cells (100X) (0-5/hpf); Band 6 % (5-11); Hypochromia SLIGHT = 6-15 cells (100X) (0-5/hpf); Lymphocytes 34 % (21-51); MDiff Complete? YES; Macrocytosis MODERATE=16-30 cells (100X) (0-5/hpf); Mean Corpuscular HGB CONC 28.6 g/dL (32.0-36.0); Mean Corpuscular Hemoglobin 34.4 pg (27.0-31.0); Mean Platelet Volume 9.7 fL (7.4-10.4); Metamyelocyte 9 % (0-0); Monocytes 39 % (0-10); Myelocyte 2 % (0-0); Neutrophil 10 % (42-75); Nucleated RBC 1 % (0); Ovalocytes MODERATE= 6-15 cells (100X) (0-1/hpf); Platelet Count 14 10x3/uL (130-400); Platelet Morphology Comment Appears Decreased; Polychromasia SLIGHT = 2-3 cells (100X) (0-2/hpf); RBC Distribution Width 14.6 % (11.5-14.5); Stomatocytes SLIGHT = 2-5 cells (100X) (0-1/hpf); Target Cells SLIGHT = 2-5 cells (100X) (0-1/hpf)
[2022-10-03] MEDS ORDERED: methylPREDNISolone Sod Succ/PF 125 MG/2 ML VIAL ONE (22:45)
[2022-10-03] MEDS ORDERED: Vancomycin 1 GM/200 ML (FROZEN) BAG ONE (22:45)
[2022-10-03] MEDS ORDERED: Cefepime 2 GM VIAL ONE (22:45)
[2022-10-03 22:46] LABS: SARS-CoV-2 NAA Rapid Test Not Detected (NotDetected)
[2022-10-03] MEDS ORDERED: Acetaminophen 325 MG TAB PER TUBE PRN (23:05)
[2022-10-03] MEDS ORDERED: Ondansetron PF 4 MG/2 ML Vial IVP PRN (23:05)
[2022-10-03] MEDS ORDERED: NOREPINEPHRINE 8 MG/250 ML-D5W 250 ML IVPB PRN (23:08)
[2022-10-03] MEDS ORDERED: Sodium Chloride 0.9% 1,000 ML IV SCH (23:15)
[2022-10-03] MEDS ORDERED: Ventilator Sedation Protocol 1 EACH FS SCH (23:15)
[2022-10-03] MEDS ORDERED: Midazolam HCl 2 mg/2 ml Vial SLOW IVP PRN (23:26)
[2022-10-03] MEDS ORDERED: Fentanyl CADD 100 ML IV SCH (23:30)
[2022-10-03] MEDS ORDERED: DISCONTINUE PREVIOUS NARCOTIC PAIN MEDICATIONS AND BENZODIAZEPINES FS SCH (23:30)
[2022-10-03] MEDS ORDERED: Morphine 4 MG/ML VIAL SLOW IVP PRN (23:30)
[2022-10-03] MEDS ORDERED: Fentanyl BOLUS 250 ML IVPB PRN (23:30)
[2022-10-03] MEDS ORDERED: Propofol 1,000 MG/100 ML VIAL IV PRN (23:30)
[2022-10-03] MEDS ORDERED: Propofol BOLUS 1,000 MG/100 ML VIAL IV PRN (23:30)
[2022-10-04] MEDS ORDERED: DC Sedation Protocol FS ONE (00:23)
[2022-10-04] MEDS ORDERED: Midazolam HCl 2 mg/2 ml Vial SLOW IVP PRN (00:28)
[2022-10-04] MEDS ORDERED: Morphine 4 MG/ML VIAL SLOW IVP PRN (00:31)
[2022-10-04 00:38] VITALS: BMI 30.7
[2022-10-04] MEDS ORDERED: methylPREDNISolone Sod Succ 40 MG VIAL IVP SCH (06:00)
[2022-10-04] MEDS ORDERED: Mometasone 200 MCG/Formoterol 5 MCG 120 PUFF INHALER INH SCH (06:30)
[2022-10-04] MEDS ORDERED: levETIRAcetam 500 mg/5 ml Oral Solution PER TUBE SCH (09:00)
[2022-10-04] MEDS ORDERED: Famotidine 20 MG TAB PER TUBE SCH (09:00)
== END 2022-10-04 00:58 | disposition expired | DRG 208 ==
LOC: ERS 21:11 → CCU 22:08
PROVIDERS: ADMIT Internal Medicine; ATTEND Internal Medicine
PROC: 5A1935Z Respiratory Ventilation, Less than 24 Consecutive Hours (ICD-10-PCS; principal; 2022-10-03)
PROC: 5A12012 Performance of Cardiac Output, Single, Manual (ICD-10-PCS; 2022-10-03)
PROC: 3E033XZ Introduction of Vasopressor into Peripheral Vein, Percutaneous Approach (ICD-10-PCS; 2022-10-03)
PROC: 0D9670Z Drainage of Stomach with Drainage Device, Via Natural or Artificial Opening (ICD-10-PCS; 2022-10-03)
DX: J96.21 Acute and chronic respiratory failure with hypoxia (principal); Z66 Do not resuscitate; Z51.5 Encounter for palliative care; I46.8 Cardiac arrest due to other underlying condition; Z20.822 Contact with and (suspected) exposure to COVID-19; Z94.84 Stem cells transplant status; J44.1 Chronic obstructive pulmonary disease with (acute) exacerbation; C83.30 Diffuse large B-cell lymphoma, unspecified site; G93.1 Anoxic brain damage, not elsewhere classified; E87.4 Mixed disorder of acid-base balance; N17.9 Acute kidney failure, unspecified; D61.818 Other pancytopenia; J96.22 Acute and chronic respiratory failure with hypercapnia; G40.909 Epilepsy, unspecified, not intractable, without status epilepticus; E03.9 Hypothyroidism, unspecified; Z96.653 Presence of artificial knee joint, bilateral; Z99.81 Dependence on supplemental oxygen; Z79.899 Other long term (current) drug therapy; Z79.890 Hormone replacement therapy; Z98.890 Other specified postprocedural states; Z82.49 Family history of ischemic heart disease and other diseases of the circulatory system
CPT/HCPCS: 36415; 36600; 71045; 71275; 80053; 82533; 82553; 82805; 83605; 83880; 84484; 85025; 85610; 85730; 93005; 94002; J0171; J0692; J2250; J2270; J2930; J3370-JW; J7050; Q9967; U0002